=== PATIENT | male | born 2000 | race Asian ===

== ENCOUNTER 2024-06-27 23:55 | Inpatient (IN) ==
[2024-06-28 00:48] LABS: Basophils # (auto) 0.04 K/uL (0.00-0.20); Basophils % (auto) 0.3 %; Eosinophils # (auto) 0.03 K/uL (0.00-0.50); Eosinophils % (auto) 0.2 %; Hematocrit (blood only) 48.1 % (42.0-52.0); Hemoglobin 16.1 g/dl (14.0-18.0); Immature Granulocytes # (auto) 0.05 K/uL (0.01-0.20); Immature Granulocytes % (auto) 0.3 %; Lymphocytes # (auto) 2.17 K/uL (1.20-3.40); Lymphocytes % (auto) 14.9 %; Mean Corpuscular Hgb Conc 33.5 g/dL (32.0-36.0); Mean Corpuscular Volume 89.6 fL (80.0-100.0); Mean Platelet Volume 10.5 fL (9.4-12.4); Monocytes # (auto) 0.82 K/uL (0.11-0.59); Monocytes % (auto) 5.6 %; Neutrophils # (auto) 11.44 K/uL (1.40-6.50); Neutrophils % (auto) 78.7 %; Platelet Count 320 K/uL (130-400); RDW Coefficient of Variation 13.1 % (11.5-14.5); RDW Standard Deviation 42.4 fL (36.4-46.3); Red Blood Count 5.37 M/uL (4.70-6.10); White Blood Count 14.55 K/ul (4.8-10.8)
[2024-06-28 00:54] LABS: Alanine Aminotransferase 126 U/L (7-52); Albumin Globulin Ratio 1.9 (0.9-2); Albumin Level 5.3 gm/dl (3.4-5.0); Alkaline Phosphatase 64 U/L (34-104); Anion Gap 13 (3-11); Aspartate Aminotransferase 38 U/L (13-39); BUN Creatinine Ratio 8.2 (10-20); Bilirubin,Total 1.1 mg/dl (0.2-1.0); Blood Urea Nitrogen 8 mg/dl (6-23); Calcium 9.6 mg/dl (8.6-10.3); Carbon Dioxide 23 mmol/L (21-32); Chloride 100 mmol/L (98-107); Globulin 2.8 gm/dl (2.5-4.0); Glucose 165 mg/dl (70-99(Fasting)); Potassium 3.4 mmol/L (3.5-5.1); Sodium 136 mmol/L (136-145); Total Protein 8.1 gm/dl (6.0-8.3)
[2024-06-28 00:56] LABS: Appearance Urine Clear (Clear); Bacteria Urine Automated None Seen (None Seen); Bilirubin Urine 1+ (Negative); Blood Urine Negative (Negative); Calcium Oxalate Crystals Urine Present (None Prsent); Cast Urine Automated 0-2 /lpf (0-2); Color Urine Dark Yellow; Epithelial Cell Urine Auto 0-2 /hpf (0-2); Glucose Urine UA Negative (Negative); Ketones Urine 1+ (Negative); Leukocyte Esterase Urine Trace (Negative); Nitrite Urine Negative (Negative); Protein Urine 1+ (Negative); Specific Gravity Urine 1.033 (1.000-1.030); Urobilinogen Urine Negative (Negative); WBC Urine Automated 0-5 /hpf (0-5); pH Urine 6.5 (4.5-7.5)
--- NOTE | 2024-06-28 01:00 | Emergency Department Note ---
Impression & Plan Recurrent thoughts of , Acute paranoia ED Provider Note CHIEF COMPLAINT: Mental health evaluation HISTORY OF PRESENT ILLNESS: This 24-year-old male patient with no significant past medical history presents to the emergency department with complaints of a "strong sensation of ." the patient stated to nursing staff that he felt as though somebody was going to shoot him with a gun. He also believes that if he does not , the situation will become a mass shooting. The patient is adamant that he has no thoughts of self-harm or harming anyone else. He states this began on June 13 with a group chat. One of the participants who lives in [place], has made the patient feel very uncomfortable however did not threaten him specifically. The patient called the police himself this evening however he would not open the door. They were able to communicate through the door however and the police left. Short while later a family member contacted the police for a welfare check. Crisis spoke with the patient for approximately 2 hours this evening. He is in the emergency department on a voluntary basis. He denies drugs and alcohol this evening. REVIEW OF SYSTEMS: 10 systems were reviewed and otherwise negative unless mentioned above. PMH: see below SOCIAL HISTORY: see below DDx: Psychosis, substance abuse, metabolic derangement, paranoia, situational stressors among others. PHYSICAL EXAM: Vital signs reviewed. General: Well-appearing 24-year-old male, in no significant distress. HEENT: No scleral icterus, PERRLA, neck supple. Atraumatic. Cardiovascular: Regular rate and rhythm, no extra sounds. Pulmonary: Clear to auscultation bilaterally, normal work of breathing. Abdomen: Soft, nontender, nondistended, positive bowel sounds. Musculoskeletal: Atraumatic, no peripheral edema. Psychiatric: Negative suicidal, negative homicidal ideation. Positive paranoia Neurologic: Patient awake alert and oriented x 3, speech is clear Skin: Warm, dry, no rash EMERGENCY DEPARTMENT COURSE/MDM: This patient was evaluated and appeared to be in no significant distress. Patient was medically cleared after physical examination, blood and urine testing. Patient is voluntary for admission after some discussion with case management and nursing staff. He was willing to take oral Ativan for some agitation and need for sleep. 3 S. has agreed to evaluate the patient and will be down after the change of shift this morning. The case has been signed out to Dr. Sánchez pending final disposition. DISPOSITION: Pending Past Med/Surg History Problem List (Updated 06/28/24 @ 02:01 by Sherron Piña MD) Acute paranoia (Acute) Recurrent thoughts of (Acute) Medical History Anxiety Surgical History No pertinent past surgical history Social History Smoking Status: Never smoker Hx Alcohol Use: No Hx Substance Use: No Preferred Language: [place] Communication Ability: Effective Yarn Hauler Required: No Beliefs That Will Affect Care: Orthodoxy Orthodoxy Beliefs: Methodist current occupational status: student current occupation: [employer] student Feels Safe at Home: Yes Gender Identity: Male Assistive Devices: None Allergies Allergies Allergy/AdvReac Type Severity Reaction Status Date / Time No Known Allergies Allergy Unverified 06/28/24 17:49 Home Meds Home Medications Medication Instructions Recorded Confirmed No Known Home Medications 06/28/24 06/28/24 Results & Data (ED) Vital Signs Vital Signs - 24 hr 06/28/24 07:51 06/28/24 11:28 Temperature 37.4 C Temperature Source Oral Pulse Rate [Finger] 100 H 102 H Pulse Rhythm [Finger] Regular Regular Pulse Strength [Finger] Normal Normal Respiratory Rate 20 18 Respiratory Effort / Characteristics Non-Labored Spontaneous Non-Labored Spontaneous Respiratory Depth Normal Normal Respiratory Pattern Regular Regular Blood Pressure [Right Arm] 143/92 H 147/91 H Blood Pressure Mean [Right Arm] 109 109 Blood Pressure Position [Right Arm] Sitting Sitting Pulse Oximetry 99 97 Oxygen Delivery Method Room Air Room Air Home Medications Current Medication List: was personally reviewed by me Laboratory Data Attestation: I reviewed the patient's lab results. 06/28/24 00:19 06/28/24 00:19 Lab Results 06/28/24 06/28/24 Range/Units 00:17 00:19 WBC 14.55 H (4.8-10.8) K/ul RBC 5.37 (4.70-6.10) M/uL Hgb 16.1 (14.0-18.0) g/dl Hct 48.1 (42.0-52.0) % MCV 89.6 (80.0-100.0) fL MCH 30.0 (25.0-34.0) pg MCHC 33.5 (32.0-36.0) g/dL RDW Std Deviation 42.4 (36.4-46.3) fL RDW Coeff of Bridget 13.1 (11.5-14.5) % Plt Count 320 (130-400) K/uL MPV 10.5 (9.4-12.4) fL Immature Gran % (Auto) 0.3 % Neut % (Auto) 78.7 % Lymph % (Auto) 14.9 % [place] % (Auto) 5.6 % Eos % (Auto) 0.2 % Baso % (Auto) 0.3 % Neut # (Auto) 11.44 H (1.40-6.50) K/uL Lymph # (Auto) 2.17 (1.20-3.40) K/uL [place]cher # (Auto) 0.82 H (0.11-0.59) K/uL Eos # (Auto) 0.03 (0.00-0.50) K/uL Baso # (Auto) 0.04 (0.00-0.20) K/uL Immature Gran # (Auto) 0.05 (0.01-0.20) K/uL Sodium 136 (136-145) mmol/L Potassium 3.4 L (3.5-5.1) mmol/L Chloride 100 (98-107) mmol/L Carbon Dioxide 23 (21-32) mmol/L Anion Gap 13 H (3-11) BUN 8 (6-23) mg/dl Creatinine 0.98 (0.6-1.4) mg/dl Est Cr Clr Drug Dosing Not Reportable eGFR 111.12 BUN/Creatinine Ratio 8.2 L (10-20) Glucose 165 H (70-99(Fasting)) mg/dl Calcium 9.6 (8.6-10.3) mg/dl Total Bilirubin 1.1 H (0.2-1.0) mg/dl AST 38 (13-39) U/L ALT 126 H (7-52) U/L Alkaline Phosphatase 64 (34-104) U/L Total Protein 8.1 (6.0-8.3) gm/dl Albumin 5.3 H (3.4-5.0) gm/dl Globulin 2.8 (2.5-4.0) gm/dl Albumin/Globulin Ratio 1.9 (0.9-2) TSH 0.727 (0.300-4.500) uIu/ml Urine Color Dark Yellow Urine Appearance Clear (Clear) Urine pH 6.5 (4.5-7.5) Ur Specific [place] 1.033 H (1.000-1.030) Urine Protein 1+ H (Negative) Urine Glucose (UA) Negative (Negative) Urine Ketones 1+ H (Negative) Urine Blood Negative (Negative) Urine Nitrite Negative (Negative) Urine Bilirubin 1+ H (Negative) Urine Urobilinogen Negative (Negative) Ur Leukocyte Esterase Trace H (Negative) Urine WBC (Auto) 0-5 (0-5) /hpf Urine RBC (Auto) 3-5 H (0-2) /hpf U Hyaline Cast (Auto) 0-2 (0-2) /lpf U Epithel Cells (Auto) 0-2 (0-2) /hpf Urine Bacteria (Auto) None Seen (None Seen) Calcium Oxalate Crystal Present A (None Prsent) Salicylates < 3.0 L (3.0-30) mg/dl Urine Opiates Screen Neg (Neg) Ur Methadone, Qual Neg (Neg) Urine Fentanyl Screen Neg (Neg) Acetaminophen < 3 L (10-30) ug/ml Urine Barbiturates Neg (Neg) Ur Phencyclidine (PCP) Neg (Neg) U Amphetamin/Meth Scrn Neg (Neg) MDMA (Ecstasy) Screen Neg (Neg) U Benzodiazepines Scrn Neg (Neg) Ur Cocaine Metabolite Neg (Neg) U Marijuana (THC) Screen Neg (Neg) Ethyl Alcohol mg/dL < 10.0 (<10.0) mg/dl SARS-CoV-2, RNA, NAAT NEGATIVE (NEGATIVE) Administered Medications Lorazepam (Lorazepam 1 Mg Tab) 1 mg PO HS MARIANA Stop: 07/28/24 21:59 Last Admin: 06/28/24 21:11 Dose: 1 mg Documented By: RB Risperidone (Risperidone 1 Mg Tablet) 1 mg PO BID MARIANA Stop: 07/28/24 20:59 Last Admin: 06/28/24 21:11 Dose: 1 mg Documented By: RB Discontinued Medications Lorazepam (Lorazepam 1 Mg Tab) 1 mg SL NOW STA Stop: 12/23/24 02:19 Last Admin: 06/28/24 02:26 Dose: 1 mg Documented By: YAJAIRA Lorazepam (Lorazepam 1 Mg Tab) 1 mg SL NOW STA Stop: 06/28/24 09:16 Last Admin: 06/28/24 10:33 Dose: 1 mg Documented By: DELONTE Lorazepam (Lorazepam 2 Mg/1 Ml Vial) 2 mg IM NOW STA Stop: 06/28/24 10:06 Last Admin: 06/28/24 14:14 Dose: Not Given Documented By: MILADY Miscellaneous Information (Patient's Allergy Info Needs Entered) 1 each N/A NOW STA Stop: 06/28/24 14:17 Last Admin: 06/28/24 18:18 Dose: 1 each Documented By: LINDA Risperidone (Risperidone 1 Mg Tablet) 1 mg PO NOW STA Stop: 06/28/24 11:13 Last Admin: 06/28/24 11:23 Dose: 1 mg Documented By: [facility] Discharge Plan Visit Data Chief Complaint: Mental Health Evaluation ED Provider: Hussain Sánchez Discharge Problem: Recurrent thoughts of , Acute paranoia Patient Disposition: Admitted As Inpatient Condition: Good Discharge Instructions Interventions: ED Discharge Assessment Last Done: 06/28/24 13:09
[2024-06-28 01:06] LABS: Amphetamines+Metham, Urine Neg (Neg); Barbiturates, Urine Neg (Neg); Benzodiazepine, Urine Neg (Neg); Cocaine, Urine Neg (Neg); Fentanyl, Urine Neg (Neg); MDMA (Ecstacy), Urine Neg (Neg); Marijuana, Urine Neg (Neg); Methadone, Urine Neg (Neg); Opiate, Urine Neg (Neg); Phencyclidine, Urine Neg (Neg)
[2024-06-28 01:09] LABS: Acetaminophen < 3 ug/ml (10-30); Salicylate < 3.0 mg/dl (3.0-30); Thyroid Stimulating Hormone 0.727 uIu/ml (0.300-4.500)
[2024-06-28] MEDS: LORazepam 1 MG TAB SL STA ×2 (02:26→10:33)
--- NOTE | 2024-06-28 06:53 | Emergency Department Note ---
ED Visit Note I received signout from Dr. Piña patient has had associated visual hallucinations or visions of him dying. Patient states that he was also inv olved in a group chat where he felt threatened. Patient reports that somebody in this group chat who apparently is located in [place] may be threatening to harm people patient currently is a voluntary 201. Patient is an international student. No prior history of mental wellness issues. Patient did receive some Ativan. Upon my assessment the patient was having delusional thinking paranoia and acute psychosis. Patient was offered Ativan which she was willing to take. Patient was evaluated by [address] Rizwan Hayden morning sure that he would be compliant and willing to try medications. The patient was ordered 1 mg of p.o. Risperdal. The patient took this. The patient was deemed suitable for inpatient treatment 3 S. Patient was accepted for inpatient treatment. .
[2024-06-28] MEDS: risperiDONE 1 MG TABLET PO STA (11:23)
[2024-06-28] MEDS ORDERED: hydrOXYzine HCl 25 MG TAB PO PRN (12:05)
[2024-06-28] MEDS ORDERED: ACETAMINOPHEN 325 MG TAB PO PRN (12:05)
[2024-06-28] MEDS ORDERED: BISMUTH SUBSALICYLATE 262 MG CHEW PO PRN (12:05)
[2024-06-28] MEDS ORDERED: MAGNESIUM HYDROXIDE SUSP 30 ML UDC PO PRN (12:05)
[2024-06-28] MEDS ORDERED: ALUMINUM/MAGNESIUM SUSP 30 ML UDC PO PRN (12:05)
[2024-06-28] MEDS ORDERED: LORazepam 2 MG/1 ML VIAL IM PRN (13:55)
[2024-06-28] MEDS ORDERED: HALOPERIDOL LACTATE 5 MG/ML 1 ML VIAL IM PRN (14:06)
[2024-06-28] MEDS: LORazepam 2 MG/1 ML VIAL IM STA (14:14)
[2024-06-28] MEDS: Patient's ALLERGY Info needs ENTERED STA (18:18)
[2024-06-28] MEDS: LORazepam 1 MG TAB PO SCH (21:11)
[2024-06-28] MEDS: risperiDONE 1 MG TABLET PO SCH (21:11)
[2024-06-29] MEDS: LORazepam 1 MG TAB PO PRN (08:21)
[2024-06-29] MEDS: haloperidoL 5 MG TAB PO PRN (08:21)
[2024-06-29 10:50] LABS: Estimated Average Glucose 105 mg/dl; Hemoglobin A1C 5.3 % (4.5-5.6)
--- NOTE | 2024-06-29 15:01 | History & Physical ---
Date of Service June 29, 2024 Impression / Recommendations Impression LIBBY GAN is a 24-year-old Latvian Male, [employer] who currently lives alone, has a history of depression, and was admitted on 06/28/24 12:05 on a 302 involuntary commitment for psychosis. Patient presenting paranoia and persecutory delusions regarding fear of of himself and family after being triggered on [employer] online chat June 13. He presents a disorganized thought process, extreme anxiety, insomnia. Poor reality testing. Recently called police for assistance and did not let them inside his apartment due to excess fears. Presented to the hospital and then attempted to elope. Has required agitation and anxiety PRNs for behaviors. Concern for prodromal cognitive difficulties, perceptual changes, decline in academic performance, and social withdrawal seen in Schizophrenia. Possible past hypomanic/marky episodes however unclear. Does not appear to be substance induced. 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 Labs reviewed: WBC 14.55, neutrophils 11.44, AST 126 with normal ALT, UA positive for RBCs and dark color/calcium oxalate crystals, UDS negative, blood alcohol of 0. Patient has been dehydrated and concern for excess motor activity. Plan to initiate antipsychotic medication and sleep aid; medication s/e, adverse effects discussed with patient and agreeable. Overall, I spent a total of 80 minutes with this case including review of chart records, nursing report, review of lab work, direct evaluation of the patient at bedside, counseling the patient, multidisciplinary team meeting, orders, and documentation in the electronic health record. (1) Unspecified psychosis not due to a substance or known physiological condition: (2) Insomnia: (3) Persecutory delusion: (4) Recurrent thoughts of : (5) Acute paranoia: (6) Anxiety: Plan 06/29/24:The patient was admitted to the [facility] ([facility] inpatient mental health unit) on q15 min checks (behavioral with suicide precautions) for safety. The patient will participate in group, recreational, and milieu therapies and will be offered additional individual and family sessions as clinically appropriate. -Risperidone 1mg QAM, 2mg HS -Lorazepam 2mg HS -CK, fasting lipid panel, HbA1c, Vitamin D, Vitamin B12 labs Inventory Assets Strengths: independent, family support Needs: improved insight, improved reality testing Suicide Risk Level Suicide Risk Level: High-Moderate (q15 min suicide checks) Risk Factors Assessment Male: Yes : No Do You Have Access To A Gun?: No Health Problems: No Mental Health Diagnoses: Yes Substance Use Disorders: No Previous Attempt: No Family History of Suicide: No Previous Psychiatric Hospitalization: No Hopelessness: Yes Protective Factors Assessment Mandaeism Beliefs: Yes : No Responsible for Young Children: No Employed: No Stable Relationships: Yes Supportive Family: Yes Good Rapport with Provider: Yes Absence of Any Risk Factors Above: No Psychiatric History Identifying Data LIBBY GAN is 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 Chief Complaint "Mind is not clear" History of Present Illness overnight patient presents thought disorganization and thought blocking. This a.m. complained of fear of being killed and requested PRNs. Haldol Ativan given. On interview the patient appeared confused and where to sit in the room. Reports that his "mind is not clear" and then says it is clear. he appears paranoid and reports he is afraid to tell me what brought him to the hospital. "Uncontrolled fears, strong heartbeat, scared, afraid someone is going to kill him". He is worried that if he tells me there is increased fear of danger. Reports not drinking as much water as he usually does. Said that he slept well yesterday but then woke up scared. Reports being on a group chat on [employer] on June 13. Repeatedly asked for a calendar to better explain the timeline. Says that if he reveals too much then they will harm his family. 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 Has recently been procrastinating and has had poor sleep. Cannot focus on classes and has been feeling nervous. Grades have been poor and he did not complete a final assignment for her class. Reports normally his grades are good. Says he is unsure of family psychiatric history. Reports past depression on Lexapro from April 2019-2023. He stopped it because he felt it was no longer helpful. At this point his thoughts are more disorganized and it is unclear what he is saying. He reports past episode where he was taking condensed coffee and then he was having more extreme mood swings and he was not sleeping for 4 to 5 days and became psychotic. Unable to clarify. Reports in the past has been claustrophobic. 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 Past Psychiatric History Current Psychiatric Diagnosis: None Do You Have Access To A Gun?: No History of Previous Suicide Attempt: No Allergies Allergy/AdvReac Type Severity Reaction Status Date / Time No Known Allergies Allergy Unverified 06/28/24 17:49 Home Medications Medication Instructions Recorded Confirmed Type No Known Home Medications 06/28/24 06/28/24 History Family History Family History of: Doesn't Know Alcohol History Hx of Alcohol Use Over the Past 12 Months: No Smoking Use Have You Smoked or Used Tobacco Products in the Last 30 Days: No Smoking Status: Never smoker Substance History Hx of Prescription Med Misuse Over the Past 12 Months: No Hx of Over the Counter Med Misuse Over the Past 12 Months: No Hx of Inhalent Misuse Over the Past 12 Months: No Hx of Organic Substance Use Over the Past 12 Months: No Hx of Illegal Substances/Street Drug Use Over Past 12 Months: No Problems as a Result of Past Substance Use: None Identified Personal History Beliefs That Will Affect Care: Mandaeism Patient History Medical History Anxiety Surgical History No pertinent past surgical history Social History Smoking Status: Never smoker Hx Alcohol Use: No Hx Substance Use: No Preferred Language: Amharic Communication Ability: Effective Stereoptician Required: No Beliefs That Will Affect Care: Mandaeism Mandaeism Beliefs: Mormon current occupational status: student current occupation: [employer] student Feels Safe at Home: Yes Gender Identity: Male Assistive Devices: None Physical Exam Vital Signs (Past 24 Hours): Last Vital Signs Temp 36.2 C L 06/29/24 06:37 Pulse 115 H 06/29/24 06:39 Resp 16 06/29/24 06:37 BP 117/80 06/29/24 06:39 Pulse Ox 98 06/29/24 06:37 O2 Del Method Room Air 06/29/24 06:37 Exam Statement: A physical exam was performed in the ED for the purposes of medical clearance. I accept that physical as correct and adequate for the purposes of the inpatient physical exam. Results & Data ([facility]) Laboratory Results Laboratory Results - last 24 hr 06/28/24 06/28/24 00:17 00:19 Estimat Average Glucose 105 Hemoglobin A1c 5.3 Total Creatine Kinase 123 Vitamin B12 541 25-OH Vitamin D Total 22.8 L Current Inpatient Medications Current Inpatient Medications: Current Inpatient Medications Acetaminophen (Acetaminophen 325 Mg Tab) 650 mg PO Q4H PRN PRN Reason: Headache or Minor Fever Stop: 07/28/24 12:04 Al Hydrox/Mg Hydrox/Simethicone (Aluminum/Magnesium Susp 30 Ml Udc) 30 ml PO Q4H PRN PRN Reason: GI Upset Stop: 07/28/24 12:04 Bismuth Subsalicylate (Bismuth Subsalicylate 262 Mg Chew) 2 tab PO Q30M PRN PRN Reason: Loose Stool/Diarrhea Stop: 07/28/24 12:04 Haloperidol (Haloperidol 5 Mg Tab) 5 mg PO Q8H PRN PRN Reason: Agitation Stop: 07/28/24 14:05 Last Admin: 06/29/24 08:21 Dose: 5 mg Haloperidol Lactate (Haloperidol Lactate 5 Mg/Ml 1 Ml Vial) 5 mg IM Q8H PRN PRN Reason: Agitation Stop: 07/28/24 14:14 Hydroxyzine HCl (Hydroxyzine Hcl 25 Mg Tab) 50 mg PO HSZ PRN PRN Reason: Insomnia Stop: 07/28/24 12:04 Hydroxyzine HCl (Hydroxyzine Hcl 25 Mg Tab) 25 mg PO Q4H PRN PRN Reason: Anxiety Stop: 07/28/24 12:04 Lorazepam (Lorazepam 2 Mg/1 Ml Vial) 1 mg IM Q6H PRN PRN Reason: Anxiety Stop: 07/28/24 13:54 Lorazepam (Lorazepam 1 Mg Tab) 1 mg PO Q6H PRN PRN Reason: Anxiety Stop: 07/28/24 14:03 Last Admin: 06/29/24 08:21 Dose: 1 mg Lorazepam (Lorazepam 1 Mg Tab) 2 mg PO HS MARIANA Stop: 07/29/24 21:59 Magnesium Hydroxide (Magnesium Hydroxide Susp 30 Ml Udc) 30 ml PO DAILY PRN PRN Reason: Constipation Stop: 07/28/24 12:04 Risperidone (Risperidone 1 Mg Tablet) 1 mg PO DAILY MARIANA Stop: 07/30/24 08:59 Risperidone (Risperidone 2 Mg Tablet) 2 mg PO HS MARIANA Stop: 07/29/24 21:59 Sodium Chloride (Sodium Chloride 0.65% Na Soln 45 Ml ([place])) 1 - 2 sprays NA PRN PRN PRN Reason: Nasal Dryness/Congestion Stop: 07/28/24 12:04
[2024-06-29] MEDS: risperiDONE 2 MG TABLET PO SCH (21:19)
[2024-06-29] MEDS: LORazepam 1 MG TAB PO SCH (21:19)
[2024-06-30 07:45] LABS: Chol HDL Ratio 3.8 (0-5)
[2024-06-30] MEDS: risperiDONE 1 MG TABLET PO SCH (09:17)
[2024-06-30] MEDS: PROPRANOLOL HCL 10 MG TAB PO SCH (10:55)
[2024-06-30] MEDS ORDERED: BENZTROPINE MESYLATE 1 MG/ML 2 ML AMP IM PRN (11:40)
[2024-06-30] MEDS: BENZTROPINE MESYLATE 1 MG TAB PO PRN (12:43)
--- NOTE | 2024-06-30 13:58 | Psychiatric Progress Note ---
Date of Service June 30, 2024 Impression / Recommendations Impression LIBBY GAN is a 24-year-old [place] Male, [place] [employer] who currently lives alone, has a history of depression, and was admitted on 06/28/24 12:05 on a 302 involuntary commitment for psychosis. Patient presenting paranoia and persecutory delusions regarding fear of of himself and family after being triggered on discord online chat June 13. He presents a disorganized thought process, extreme anxiety, insomnia. Poor reality testing. Recently called police for assistance and did not let them inside his apartment due to excess fears. Presented to the hospital and then attempted to elope. Has required agitation and anxiety PRNs for behaviors. Concern for prodromal cognitive difficulties, perceptual changes, decline in academic performance, and social withdrawal seen in Schizophrenia. Possible past hypomanic/marky episodes however unclear. Does not appear to be substance induced. A:Patient acutely psychotic. Presents persecutory delusions of being targeted and that him and his families life is in danger. Appears to be in response to a recent online chat. Concern for dystonia and slurred speech d/t excess D2 blockade. Elevated heart rate. Limited sleep overnight. Plan to switch ant ipsychotics to limit EPS and improve sleep. Scheduled benztropine for EPS. Propranolol started for inc HR 2/2 anxiety, antipsychotic meds. Labs reviewed and Vitamin D insufficience, B12 unremarkable, lipid panel and hgba1c unremarkable; CK 123. Overall, I spent a total of 40 minutes with this case including review of chart records, nursing report, review of lab work, direct evaluation of the patient at bedside, counseling the patient, multidisciplinary team meeting, orders, and documentation in the electronic health record. (1) Unspecified psychosis not due to a substance or known physiological condition: (2) Insomnia: (3) Persecutory delusion: (4) Recurrent thoughts of : (5) Acute paranoia: (6) Anxiety: (7) Dystonia: (8) Antipsychotic-induced neurological movement disorder: Plan 06/30/24: D/C Risperidone. Start Olanzapine 5mg QAM, 15mg HS. Benztropine 0.5mg HS and PRN started. Start Propranolol 10mg TID. Vitals TID. 06/29/24:The patient was admitted to the [facility] ([facility] mental [facility] unit) on q15 min checks (behavioral with suicide precautions) for safety. The patient will participate in group, recreational, and milieu therapies and will be offered additional individual and family sessions as clinically appropriate. -Risperidone 1mg QAM, 2mg HS -Lorazepam 2mg HS -CK, fasting lipid panel, HbA1c, Vitamin D, Vitamin B12 labs Inventory Assets Strengths: independent, family support Needs: improved insight, improved reality testing Suicide Risk Level Suicide Risk Level: High-Moderate (q15 min suicide checks) Risk Factors Assessment Male: Yes : No Do You Have Access To A Gun?: No Health Problems: No Mental Health Diagnoses: Yes Substance Use Disorders: No Previous Attempt: No Family History of Suicide: No Previous Psychiatric Hospitalization: No Hopelessness: Yes Protective Factors Assessment Christianity Beliefs: Yes : No Responsible for Young Children: No Employed: No Stable Relationships: Yes Supportive Family: Yes Good Rapport with Provider: Yes Absence of Any Risk Factors Above: No Interval History Identifying Information LIBBY GAN is a 24-year-old [place] Male, [employer] senior who currently lives alone, has a history of depression, and was admitted on 06/28/24 12:05 on a 302 involuntary commitment for psychosis. Chief Complaint "Still worried" Review of Systems Sleep Information Total Hours of Sleep: 5.5 Meal Information Percent Meal Consumed - Breakfast: 100 Percent Meal Consumed - Lunch: 75 Percent Meal Consumed - Dinner: 75 Subjective Subjective Patient was seen & assessed and interval progress reviewed with treatment team nursing and social work Overnight patient presents disorganized thought process and appears paranoid. on interview he appears paranoid. He talks to me with his eyes closed. The slurred speech. Reports that his heart is beating fast. Has difficulty expressing clear sentences. Reports he still feels he is being monitored on "we chat, Instagram, phone messages, calls" and that they know his location. Says there is a new patient on the floor and he is worried about them. He lives soft bunch of numbers which could could possibly be a phone number but is not clear. He asks us to read a note that he wrote. After receiving Haldol and Ativan as needed in the morning he is seen to have a locked body position of his arms and hip. Reviewed the note he wrote: reports that he is from [facility]. discusses how he was sent messages by someone who did not know his number. How unknown people could know each other. He sent a screen shot of his chat history to his parents and they did not understand the connection. Feels both of his phones are monitored and that people are listening through the microphones. Says that his Wi-Fi at his apartment was being monitored and controlled. That is we chat account was hacked and that "Cristino Parekh" is threatening the life of his family members in exchange for his life. unsure of why this individual hates him so much and wants him or his family . Says that he never hated this person. Says that this individual and another individual "A Maxi" cooperated to control his [employer] and [employer] account. Says he was mocked for his birthday being [birth year]. Reports judgments of being a "terrible person with a bad temper with yells and shouts many words". Says he does not know why he is being monitored too much and that he is just a foreign college student who happens to be interested in offensive names and conspiracy theories. Pleading that he can have a normal life. Physical Exam Mental Examination Appearance: Disheveled Eye Contact: Sporadic Contact Motor Behavior: Slowed (dystonia of neck, hips) Speech: Slurred Mood: Anxious Affect: Fearful and Nervous Thought Process: Disorganized and Evasive Hallucinations: None Insight: Poor (persecutory delusions) Judgement: Poor Vital Signs (Past 24 Hours) Last Vital Signs Temp 36.3 C L 06/30/24 11:37 Pulse 136 H 06/30/24 11:37 Resp 20 06/30/24 06:00 BP 131/93 06/30/24 11:37 Pulse Ox 98 06/30/24 11:37 O2 Del Method Room Air 06/30/24 11:37 Results & Data ([facility]) Laboratory Results Laboratory Results - last 24 hr 06/30/24 07:05 Triglycerides 94 Cholesterol 159 LDL Cholesterol, Calc 98 VLDL Cholesterol, Calc 19 HDL Cholesterol 42 Cholesterol/HDL Ratio 3.8 Current Inpatient Medications Current Inpatient Medications: Current Inpatient Medications Acetaminophen (Acetaminophen 325 Mg Tab) 650 mg PO Q4H PRN PRN Reason: Headache or Minor Fever Stop: 07/28/24 12:04 Al Hydrox/Mg Hydrox/Simethicone (Aluminum/Magnesium Susp 30 Ml Udc) 30 ml PO Q4H PRN PRN Reason: GI Upset Stop: 07/28/24 12:04 Benztropine Mesylate (Benztropine Mesylate 1 Mg Tab) 1 mg PO Q8H PRN PRN Reason: EPS Stop: 07/30/24 11:39 Last Admin: 06/30/24 12:43 Dose: 1 mg Benztropine Mesylate (Benztropine Mesylate 1 Mg/Ml 2 Ml Amp) 1 mg IM Q8H PRN PRN Reason: EPS Stop: 07/30/24 11:39 Benztropine Mesylate (Benztropine Mesylate 0.5 Mg Tab) 0.5 mg PO HS MARIANA Stop: 07/30/24 21:59 Bismuth Subsalicylate (Bismuth Subsalicylate 262 Mg Chew) 2 tab PO Q30M PRN PRN Reason: Loose Stool/Diarrhea Stop: 07/28/24 12:04 Haloperidol (Haloperidol 5 Mg Tab) 5 mg PO Q8H PRN PRN Reason: Agitation Stop: 07/28/24 14:05 Last Admin: 06/30/24 07:33 Dose: 5 mg Haloperidol Lactate (Haloperidol Lactate 5 Mg/Ml 1 Ml Vial) 5 mg IM Q8H PRN PRN Reason: Agitation Stop: 07/28/24 14:14 Hydroxyzine HCl (Hydroxyzine Hcl 25 Mg Tab) 50 mg PO HSZ PRN PRN Reason: Insomnia Stop: 07/28/24 12:04 Hydroxyzine HCl (Hydroxyzine Hcl 25 Mg Tab) 25 mg PO Q4H PRN PRN Reason: Anxiety Stop: 07/28/24 12:04 Lorazepam (Lorazepam 2 Mg/1 Ml Vial) 1 mg IM Q6H PRN PRN Reason: Anxiety Stop: 07/28/24 13:54 Lorazepam (Lorazepam 1 Mg Tab) 1 mg PO Q6H PRN PRN Reason: Anxiety Stop: 07/28/24 14:03 Last Admin: 06/30/24 07:33 Dose: 1 mg Lorazepam (Lorazepam 1 Mg Tab) 2 mg PO HS MARIANA Stop: 07/29/24 21:59 Last Admin: 06/29/24 21:19 Dose: 2 mg Magnesium Hydroxide (Magnesium Hydroxide Susp 30 Ml Udc) 30 ml PO DAILY PRN PRN Reason: Constipation Stop: 07/28/24 12:04 Olanzapine (Olanzapine 5 Mg Tablet) 15 mg PO HS MARIANA Stop: 07/30/24 21:59 Olanzapine (Olanzapine 5 Mg Tablet) 5 mg PO QAM MARIANA Stop: 07/31/24 08:59 Propranolol HCl (Propranolol Hcl 10 Mg Tab) 10 mg PO TID MARIANA Stop: 07/30/24 09:49 Last Admin: 06/30/24 11:40 Dose: 10 mg Sodium Chloride (Sodium Chloride 0.65% Na Soln 45 Ml ([place])) 1 - 2 sprays NA PRN PRN PRN Reason: Nasal Dryness/Congestion Stop: 07/28/24 12:04 Mental Health & Subst Abuse Tx Therapist Name of Therapist: None Implementation Manager Name of Implementation Manager: None Post Discharge Appointments Primary Care Physician Name Of Family Doctor/PCP: FEROZ
[2024-06-30] MEDS ORDERED: OLANZapine ZYDIS 5 MG ORALLY DIS. TAB PO PRN (14:19)
[2024-06-30] MEDS: BENZTROPINE MESYLATE 1 MG/ML 2 ML AMP IM STA (14:22)
[2024-06-30] MEDS: hydrOXYzine HCl 25 MG TAB PO PRN (15:20)
[2024-06-30] MEDS: BENZTROPINE MESYLATE 1 MG TAB PO SCH (21:08)
[2024-06-30] MEDS: OLANZapine 5 MG TABLET PO SCH (21:09)
[2024-06-30] MEDS ORDERED: BENZTROPINE MESYLATE 0.5 MG TAB PO SCH (22:00)
[2024-07-01] MEDS: OLANZapine 5 MG TABLET PO SCH (08:38)
--- NOTE | 2024-07-01 14:56 | Psychiatric Progress Note ---
Date of Service July 01, 2024 Impression / Recommendations Impression LIBBY GAN is a 24-year-old [place] Male, [employer] senior who currently lives alone, has a history of depression, and was admitted on 06/28/24 12:05 on a 302 involuntary commitment for psychosis. Patient presenting paranoia and persecutory delusions regarding fear of of himself and family after being triggered on [employer] online chat June 13. He presents a disorganized thought process, extreme anxiety, insomnia. Poor reality testing. Recently called police for assistance and did not let them inside his apartment due to excess fears. Presented to the hospital and then attempted to elope. Has required agitation and anxiety PRNs for behaviors. Concern for prodromal cognitive difficulties, perceptual changes, decline in academic performance, and social withdrawal seen in Schizophrenia. Possible past hypomanic/marky episodes however unclear. Does not appear to be substance induced. A:Patient acutely psychotic. Presents persecutory delusions of being targeted and that him and his family's life is in danger. Unable to explore past history of mental health complaints due to paranoia and fear that it will result in of mother. Patient presenting paranoia about new patient on the unit. Presents in a highly anxious state and impacting sleep and daily function. Dystonia resolved. Elevated heart rate stabilized. Appears less physically anxious today with propranolol. Collateral gathered from mother and updated on care plan. Patient continues to present poor reality testing and there is concern for potential self-harm or harm against others if discharged in his current state. In addition he presented in a severely dehydrated state with poor self-care and there is concern that this behavior will repeat without psychiatric stabilization. Pursuing 303 involuntary commitment with hearing scheduled for tomorrow. Overall, I spent a total of 80 minutes with this case including review of chart records, nursing report, review of lab work, direct evaluation of the patient at bedside, counseling the patient, multidisciplinary team meeting, gathering collateral from mother, orders, and documentation in the electronic health record. (1) Unspecified psychosis not due to a substance or known physiological condition: (2) Insomnia: (3) Persecutory delusion: (4) Recurrent thoughts of : (5) Acute paranoia: (6) Anxiety: Plan 07/01/24: Continue medications and treatment plan. 06/30/24: D/C Risperidone. Start Olanzapine 5mg QAM, 15mg HS. Benztropine 1mg HS and PRN started. Start Propranolol 10mg TID. Vitals TID. 06/29/24:The patient was admitted to the [facility] ([facility] mental health unit) on q15 min checks (behavioral with suicide precautions) for safety. The patient will participate in group, recreational, and milieu therapies and will be offered additional individual and family sessions as clinically appropriate. -Risperidone 1mg QAM, 2mg HS -Lorazepam 2mg HS -CK, fasting lipid panel, HbA1c, Vitamin D, Vitamin B12 labs Inventory Assets Strengths: independent, family support Needs: improved insight, improved reality testing Suicide Risk Level Suicide Risk Level: High-Moderate (q15 min suicide checks) Risk Factors Assessment Male: Yes : No Do You Have Access To A Gun?: No Health Problems: No Mental Health Diagnoses: Yes Substance Use Disorders: No Previous Attempt: No Family History of Suicide: No Previous Psychiatric Hospitalization: No Hopelessness: Yes Protective Factors Assessment Yarsani Beliefs: Yes : No Responsible for Young Children: No Employed: No Stable Relationships: Yes Supportive Family: Yes Good Rapport with Provider: Yes Absence of Any Risk Factors Above: No Interval History Identifying Information LIBBY GAN is a 24-year-old [place] Male, [employer] [facility] senior who currently lives alone, has a history of depression, and was admitted on 06/28/24 12:05 on a 302 involuntary commitment for psychosis. Chief Complaint "If I tell you they may kill my family." Review of Systems Sleep Information Total Hours of Sleep: 4.25 Meal Information Percent Meal Consumed - Breakfast: 75 Percent Meal Consumed - Lunch: 75 Percent Meal Consumed - Dinner: 75 Subjective Subjective Patient was seen & assessed and interval progress reviewed with treatment team nursing and social work Overnight nursing reports patient responded well to Cogentin. Had a restless night's sleep getting 4.5 hours. Has been focused on making sure the doors have been locked. Noted to have been fighting sleep due to paranoia. No dystonic episodes overnight. The patient reports sleep has been improved and he denies any rigid muscle movements. On exam no dystonia of extraocular muscles or tongue. no muscle rigidity demonstrated elsewhere. Patient appears anxious when he talks to me but reports improvement. He initially presents having a past similar episode to current symptoms in fall 2022. When I tried to inquire more he reports that he is afraid that if he tells me that his mother will be killed. Unable to clarify further. He presents some difficulty answering questions and requires prompting. Video ad writer speaking Mandarin Tongan (ID: [email or web address]) was used to coordinate conversation between mother who does not speak Syriac, myself, and patient. Mother was informed of patient's situation and care plan; no concerns reported. Mother assures patient that he is safe. After the video called mother was completed patient asks if he is going to get deported. He says that his mother is not right and that there is a threat of loza rm towards herself and him and appears worried. Patient was reassured that he is safe in the hospital. He becomes paranoid that the other doors in the unit have a lock in his does not and that the other doors have a handle. Patient reassured. He reports fear that the new patient on the unit caused him to be scared. Unable to state why. Physical Exam Mental Examination Appearance: Disheveled Eye Contact: Sporadic Contact Motor Behavior: Unremarkable Speech: Slurred Mood: Anxious Affect: Fearful and Nervous Thought Process: Disorganized and Evasive Hallucinations: None Insight: Poor (persecutory delusions) Judgement: Poor Vital Signs (Past 24 Hours) Last Vital Signs Temp 36.3 C L 06/30/24 11:37 Pulse 92 H 06/30/24 20:13 Resp 18 06/30/24 20:13 BP 129/88 06/30/24 20:13 Pulse Ox 96 06/30/24 20:13 O2 Del Method Room Air 06/30/24 20:13 Results & Data ([facility]) Current Inpatient Medications Current Inpatient Medications: Current Inpatient Medications Acetaminophen (Acetaminophen 325 Mg Tab) 650 mg PO Q4H PRN PRN Reason: Headache or Minor Fever Stop: 07/28/24 12:04 Al Hydrox/Mg Hydrox/Simethicone (Aluminum/Magnesium Susp 30 Ml Udc) 30 ml PO Q4H PRN PRN Reason: GI Upset Stop: 07/28/24 12:04 Benztropine Mesylate (Benztropine Mesylate 1 Mg Tab) 1 mg PO Q8H PRN PRN Reason: EPS Stop: 07/30/24 11:39 Last Admin: 06/30/24 12:43 Dose: 1 mg Benztropine Mesylate (Benztropine Mesylate 1 Mg/Ml 2 Ml Amp) 1 mg IM Q8H PRN PRN Reason: EPS Stop: 07/30/24 11:39 Benztropine Mesylate (Benztropine Mesylate 1 Mg Tab) 1 mg PO HS MARIANA Stop: 07/30/24 21:59 Last Admin: 06/30/24 21:08 Dose: 1 mg Bismuth Subsalicylate (Bismuth Subsalicylate 262 Mg Chew) 2 tab PO Q30M PRN PRN Reason: Loose Stool/Diarrhea Stop: 07/28/24 12:04 Hydroxyzine HCl (Hydroxyzine Hcl 25 Mg Tab) 50 mg PO HSZ PRN PRN Reason: Insomnia Stop: 07/28/24 12:04 Hydroxyzine HCl (Hydroxyzine Hcl 25 Mg Tab) 25 mg PO Q4H PRN PRN Reason: Anxiety Stop: 07/28/24 12:04 Last Admin: 06/30/24 15:20 Dose: 25 mg Lorazepam (Lorazepam 2 Mg/1 Ml Vial) 1 mg IM Q6H PRN PRN Reason: Anxiety Stop: 07/28/24 13:54 Lorazepam (Lorazepam 1 Mg Tab) 1 mg PO Q6H PRN PRN Reason: Anxiety Stop: 07/28/24 14:03 Last Admin: 06/30/24 07:33 Dose: 1 mg Lorazepam (Lorazepam 1 Mg Tab) 2 mg PO HS MARIANA Stop: 07/29/24 21:59 Last Admin: 06/30/24 21:09 Dose: 2 mg Magnesium Hydroxide (Magnesium Hydroxide Susp 30 Ml Udc) 30 ml PO DAILY PRN PRN Reason: Constipation Stop: 07/28/24 12:04 Olanzapine (Olanzapine 5 Mg Tablet) 15 mg PO HS MARIANA Stop: 07/30/24 21:59 Last Admin: 06/30/24 21:09 Dose: 15 mg Olanzapine (Olanzapine 5 Mg Tablet) 5 mg PO QAM MARIANA Stop: 07/31/24 08:59 Last Admin: 07/01/24 08:38 Dose: 5 mg Olanzapine (Olanzapine Zydis 5 Mg Orally Dis. Tab) 5 mg PO BID PRN PRN Reason: Agitation Stop: 07/30/24 20:59 Propranolol HCl (Propranolol Hcl 10 Mg Tab) 10 mg PO TID MARIANA Stop: 07/30/24 09:49 Last Admin: 07/01/24 13:12 Dose: 10 mg Sodium Chloride (Sodium Chloride 0.65% Na Soln 45 Ml ([place])) 1 - 2 sprays NA PRN PRN PRN Reason: Nasal Dryness/Congestion Stop: 07/28/24 12:04 Mental Health & Subst Abuse Tx Psychiatrist Name of Psychiatrist: Pacheco Lobo-Danny Madsen Psychiatrist's Date Of Appointment With Psychiatric Provider: 07/23/24 Time of Appointment with Psychiatrist: 2:50PM Psychiatric Appointment Comment: Intake appt will take 1.5 hrs. Please bring insurance card to appt Therapist Name of Therapist: None Aircraft Power Plant Assembler Name of Aircraft Power Plant Assembler: None Post Discharge Appointments Primary Care Physician Name Of Family Doctor/PCP: FEROZ Other #1: Name of Aftercare Appointment: IPG Phone Number of Aftercare Appointment: Date of Aftercare Appointment: 07/19/24 Time of Aftercare Appointment: 11AM Aftercare Appointment Comment: First Episode Psychosis Program. [address], [place]
[2024-07-01] MEDS: INFLUENZA VACC TS2024-25(6m+)/PF (IIV3) 0.5mL Syr IM ONE (21:25)
[2024-07-02] MEDS: CHOLECALCIFEROL 125 MCG (5,000 UNITS) TAB PO SCH (09:26)
--- NOTE | 2024-07-02 12:20 | Psychiatric Progress Note ---
Date of Service July 02, 2024 Impression / Recommendations Impression LIBBY GAN is a 24-year-old Greenlandic Male, [employer] [facility] [employer] senior who currently lives alone, has a history of depression, and was admitted on 06/28/24 12:05 on a 302 involuntary commitment for psychosis. Patient presenting paranoia and persecutory delusions regarding fear of of himself and family after being triggered on [employer] online chat June 13. He presents a disorganized thought process, extreme anxiety, insomnia. Poor reality testing. Recently called police for assistance and did not let them inside his apartment due to excess fears. Presented to the hospital and then attempted to elope. Has required agitation and anxiety PRNs for behaviors. Concern for prodromal cognitive difficulties, perceptual changes, decline in academic performance, and social withdrawal seen in Schizophrenia. Possible past hypomanic/marky episodes however unclear. Does not appear to be substance induced. A:Patient acutely psychotic. Presents persecutory delusions of being targeted and that him and his family's life is in danger. Today patient was more forthcoming about past episodes of psychosis. Continues to present difficulty falling and staying asleep. Vitals are stable and appears to be tolerating her antipsychotic medications. Appears less physically anxious with propranolol. Today completed the 303 involuntary commitment and was approved. Less a.m. sedation after receiving olanzapine. Given sleep impairments will switch to longer acting benzodiazepine and will schedule the evening. Overall, I spent a total of 60 minutes with this case including review of chart records, nursing report, review of lab work, direct evaluation of the patient at bedside, counseling the patient, multidisciplinary team meeting, court hearing, orders, and documentation in the electronic health record. (1) Unspecified psychosis not due to a substance or known physiological condition: (2) Insomnia: (3) Persecutory delusion: (4) Recurrent thoughts of : (5) Acute paranoia: (6) Anxiety: Plan 07/02/24: D/C Lorazepam. Start Clonazepam 1mg HS. Start Vitamin D 5000u daily. 07/01/24: Continue medications and treatment plan. 06/30/24: D/C Risperidone. Start Olanzapine 5mg QAM, 15mg HS. Benztropine 1mg HS and PRN started. Start Propranolol 10mg TID. Vitals TID. 06/29/24:The patient was admitted to the [facility] ([facility] mental [facility] unit) on q15 min checks (behavioral with suicide precautions) for safety. The patient will participate in group, recreational, and milieu therapies and will be offered additional individual and family sessions as clinically appropriate. -Risperidone 1mg QAM, 2mg HS -Lorazepam 2mg HS -CK, fasting lipid panel, HbA1c, Vitamin D, Vitamin B12 labs Inventory Assets Strengths: independent, family support Needs: improved insight, improved reality testing Suicide Risk Level Suicide Risk Level: High-Moderate (q15 min suicide checks) Risk Factors Assessment Male: Yes : No Do You Have Access To A Gun?: No Health Problems: No Mental Health Diagnoses: Yes Substance Use Disorders: No Previous Attempt: No Family History of Suicide: No Previous Psychiatric Hospitalization: No Hopelessness: Yes Protective Factors Assessment Rastafari Beliefs: Yes : No Responsible for Young Children: No Employed: No Stable Relationships: Yes Supportive Family: Yes Good Rapport with Provider: Yes Absence of Any Risk Factors Above: No Interval History Identifying Information LIBBY GAN is a 24-year-old Greenlandic Male, [employer] [facility] [employer] senior who currently lives alone, has a history of depression, and was admitted on 06/28/24 12:05 on a 302 involuntary commitment for psychosis. Chief Complaint Psychosis Review of Systems Sleep Information Total Hours of Sleep: 4.25 Meal Information Percent Meal Consumed - Breakfast: 100 Percent Meal Consumed - Lunch: 75 Percent Meal Consumed - Dinner: 90 Subjective Subjective Patient was seen & assessed and interval progress reviewed with treatment team nursing and social work Nursing reports overnight patient has been paranoid and disorganized at times. He had difficulty falling asleep going to sleep at 1:30 AM for 4-1/2 hours. Complained of anxiety and received lorazepam as needed at 6 PM. Today on interview he reports an improvement in anxiety and mood. Says that his mental illness has improved. Says he feels more rested. Presents some thought disorganization when answering questions. Reports feeling "shock, afraid, anxious". I asked him about a past episode he had in fall 2022. He is initially hesitant and then he asked that it stays only between us. Reports being in [facility] which is close to his home city of [facility]. says he was in Instagram group With 3 of his roommates and there was an argument. One of the guys called him to spy and he got emotional. He reports not being able to remember anything clearly and was hitting his head slightly. Said he went into a nervous mental state. He was fearful and was unable to sleep. He called his father for help. At that time he was not eating food or drinking fluids. He was on the way back to [place] and he was at the airport area in [facility]. He could not find his way to the [facility]. He had asked random people for help and he was lost. He was on the bus for workers and he asked the bushwalking guide to take him to the airport. He called his mother saying that he was lost in the airport. In the middle of the interview by phone makes a noise because of a text message and patient becomes acutely paranoid asking what that sound is. He reports at the time feeling that something terrible may happen. He felt dehydrated and his heart was racing. His mother arrived to help him. An ambulance took him to a public hospital. He reports feeling scared and paranoid in the hospital. He talks about another individual there that he was suspicious of. Their phone kept getting messages and he thought it was about him. He reports taking medications for sleep and it was helpful. Reports "falling into a nervous and psychotic state". He was "fearful of everything". He was hiding in the bathroom and did not want to come out. He reports not murmuring what medications he took and that he did not take them after he left the hospital. Physical Exam Mental Examination Appearance: Disheveled Eye Contact: Sporadic Contact Motor Behavior: Unremarkable Speech: Slurred Mood: Anxious Affect: Fearful and Nervous Thought Process: Disorganized Hallucinations: None Insight: Poor (persecutory delusions, improving) Judgement: Poor Vital Signs (Past 24 Hours) Last Vital Signs Temp 36.5 C 07/02/24 06:35 Pulse 105 H 07/02/24 06:35 Resp 16 07/02/24 06:35 BP 117/83 07/02/24 06:35 Pulse Ox 99 07/01/24 21:27 O2 Del Method Room Air 07/01/24 21:27 Results & Data ([facility]) Current Inpatient Medications Current Inpatient Medications: Current Inpatient Medications Acetaminophen (Acetaminophen 325 Mg Tab) 650 mg PO Q4H PRN PRN Reason: Headache or Minor Fever Stop: 07/28/24 12:04 Al Hydrox/Mg Hydrox/Simethicone (Aluminum/Magnesium Susp 30 Ml Udc) 30 ml PO Q4H PRN PRN Reason: GI Upset Stop: 07/28/24 12:04 Benztropine Mesylate (Benztropine Mesylate 1 Mg Tab) 1 mg PO Q8H PRN PRN Reason: EPS Stop: 07/30/24 11:39 Last Admin: 06/30/24 12:43 Dose: 1 mg Benztropine Mesylate (Benztropine Mesylate 1 Mg/Ml 2 Ml Amp) 1 mg IM Q8H PRN PRN Reason: EPS Stop: 07/30/24 11:39 Benztropine Mesylate (Benztropine Mesylate 1 Mg Tab) 1 mg PO HS MARIANA Stop: 07/30/24 21:59 Last Admin: 07/01/24 21:12 Dose: 1 mg Bismuth Subsalicylate (Bismuth Subsalicylate 262 Mg Chew) 2 tab PO Q30M PRN PRN Reason: Loose Stool/Diarrhea Stop: 07/28/24 12:04 Hydroxyzine HCl (Hydroxyzine Hcl 25 Mg Tab) 50 mg PO HSZ PRN PRN Reason: Insomnia Stop: 07/28/24 12:04 Hydroxyzine HCl (Hydroxyzine Hcl 25 Mg Tab) 25 mg PO Q4H PRN PRN Reason: Anxiety Stop: 07/28/24 12:04 Last Admin: 06/30/24 15:20 Dose: 25 mg Lorazepam (Lorazepam 2 Mg/1 Ml Vial) 1 mg IM Q6H PRN PRN Reason: Anxiety Stop: 07/28/24 13:54 Lorazepam (Lorazepam 1 Mg Tab) 1 mg PO Q6H PRN PRN Reason: Anxiety Stop: 07/28/24 14:03 Last Admin: 07/01/24 18:10 Dose: 1 mg Lorazepam (Lorazepam 1 Mg Tab) 2 mg PO HS MARIANA Stop: 07/29/24 21:59 Last Admin: 07/01/24 21:15 Dose: 2 mg Magnesium Hydroxide (Magnesium Hydroxide Susp 30 Ml Udc) 30 ml PO DAILY PRN PRN Reason: Constipation Stop: 07/28/24 12:04 Olanzapine (Olanzapine 5 Mg Tablet) 15 mg PO HS MARIANA Stop: 07/30/24 21:59 Last Admin: 07/01/24 21:13 Dose: 15 mg Olanzapine (Olanzapine 5 Mg Tablet) 5 mg PO QAM MARIANA Stop: 07/31/24 08:59 Last Admin: 07/02/24 07:59 Dose: 5 mg Olanzapine (Olanzapine Zydis 5 Mg Orally Dis. Tab) 5 mg PO BID PRN PRN Reason: Agitation Stop: 07/30/24 20:59 Propranolol HCl (Propranolol Hcl 10 Mg Tab) 10 mg PO TID MARIANA Stop: 07/30/24 09:49 Last Admin: 07/02/24 07:59 Dose: 10 mg Sodium Chloride (Sodium Chloride 0.65% Na Soln 45 Ml ([place])) 1 - 2 sprays NA PRN PRN PRN Reason: Nasal Dryness/Congestion Stop: 07/28/24 12:04 Vitamin D (Cholecalciferol 125 Mcg (5,000 Units) Tab) 125 mcg PO QAM [facility] Stop: 08/01/24 09:14 Last Admin: 07/02/24 09:26 Dose: 125 mcg Mental Health & Subst Abuse Tx Psychiatrist Name of Psychiatrist: [facility]-Danny Madsen Psychiatrist's Date Of Appointment With Psychiatric Provider: 07/23/24 Time of Appointment with Psychiatrist: 2:50PM Psychiatric Appointment Comment: Intake appt will take 1.5 hrs. Please bring insurance card to appt Therapist Name of Therapist: None Associate Director Name of Associate Director: None Post Discharge Appointments Primary Care Physician Name Of Family Doctor/PCP: FEROZ Other #1: Name of Aftercare Appointment: [facility] Phone Number of Aftercare Appointment: Date of Aftercare Appointment: 07/19/24 Time of Aftercare Appointment: 11AM Aftercare Appointment Comment: First Episode Psychosis Program. [address], [place]
[2024-07-02] MEDS: clonazePAM 1 MG TAB PO SCH (19:29)
--- NOTE | 2024-07-03 09:31 | Psychiatric Progress Note ---
Date of Service July 03, 2024 Impression / Recommendations Impression LIBBY GAN is a 24-year-old Faro[place] Male, [employer] senior who currently lives alone, has a history of depression, and was admitted on 06/28/24 12:05 on a 302 involuntary commitment for psychosis. Patient presenting paranoia and persecutory delusions regarding fear of of himself and family after being triggered on [employer] online chat June 13. He presents a disorganized thought process, extreme anxiety, insomnia. Poor reality testing. Recently called police for assistance and did not let them inside his apartment due to excess fears. Presented to the hospital and then attempted to elope. Has required agitation and anxiety PRNs for behaviors. Concern for prodromal cognitive difficulties, perceptual changes, decline in academic performance, and social withdrawal seen in Schizophrenia. Possible past hypomanic/marky episodes however unclear. Does not appear to be substance induced. A:Some lessening of paranoia today after sleeping well overnight, less fixated on need to ensure his mother is safe but remains very guarded. Tolerating current medications with some symptom improvement so far. Overall, I spent a total of 36 minutes on this case including meeting with the patient, reviewing the chart, nursing report, multidisciplinary team meeting, orders, and documentation. (1) Unspecified psychosis not due to a substance or known physiological condition: (2) Insomnia: (3) Persecutory delusion: (4) Recurrent thoughts of : (5) Acute paranoia: (6) Anxiety: Plan 07/03/2024: Continue current medications and tx plan. 07/02/24: D/C Lorazepam. Start Clonazepam 1mg HS. Start Vitamin D 5000u daily. 07/01/24: Continue medications and treatment plan. 06/30/24: D/C Risperidone. Start Olanzapine 5mg QAM, 15mg HS. Benztropine 1mg HS and PRN started. Start Propranolol 10mg TID. Vitals TID. 06/29/24:The patient was [facility] ([facility] inpatient mental health unit) on q15 min checks (behavioral with suicide precautions) for safety. The patient will participate in group, recreational, and milieu therapies and will be offered additional individual and family sessions as clinically appropriate. -Risperidone 1mg QAM, 2mg HS -Lorazepam 2mg HS -CK, fasting lipid panel, HbA1c, Vitamin D, Vitamin B12 labs Inventory Assets Strengths: independent, family support Needs: improved insight, improved reality testing Suicide Risk Level Suicide Risk Level: Moderate (q15 min suicide checks) (psychosis and hx of depression but denies any command AH, denies SI and feels safe in the hospital and feels able to ask for help. 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 Chief Complaint "I'm doing ok". Review of Systems Sleep Information Total Hours of Sleep: 7 Meal Information Percent Meal Consumed - Breakfast: 100 Percent Meal Consumed - Lunch: 100 Percent Meal Consumed - Dinner: 100 Subjective Subjective Patient was seen & assessed and interval progress reviewed with nursing. Less paranoid last evening but with some confusion after falling asleep on the couch. This morning less focused on need to verify his mother was safe. Reports sleeping better overnight, discussed his recent paranoia and he feels this is lessening "less of that". Denies any medication side effects. Able to speak to hearing AH in the past, denies any currently. Reviewed history of SI last year but denies any currently. Physical Exam Psychiatric Orientation: alert and oriented x 3 Apperance: appropriately dressed and appropriately groomed Eye Contact: + fair eye contact Motor Behavior: no abnormal motor movements Speech: + abnormal rate/rhythm/volume of speech (monotone) Affect: + flat affect Mood: no depressed mood and no anxious mood Thought Process: + concrete thought process Thought Content: + paranoid Suicidal Thoughts: denies suicidal thoughts Homicidal Thoughts: denies homicidal thoughts Hallucinations: no auditory hallucinations and no visual hallucinations Insight: + limited insight Judgment: + limited judgement Vital Signs (Past 24 Hours) Last Vital Signs Temp 36.4 C L 07/03/24 06:32 Pulse 105 H 07/03/24 06:32 Resp 16 07/03/24 06:32 BP 116/81 07/03/24 06:32 Pulse Ox 99 07/02/24 19:28 O2 Del Method Room Air 07/02/24 19:28 Results & Data ([facility]) Current Inpatient Medications Current Inpatient Medications: Current Inpatient Medications Acetaminophen (Acetaminophen 325 Mg Tab) 650 mg PO Q4H PRN PRN Reason: Headache or Minor Fever Stop: 07/28/24 12:04 Al Hydrox/Mg Hydrox/Simethicone (Aluminum/Magnesium Susp 30 Ml Udc) 30 ml PO Q4H PRN PRN Reason: GI Upset Stop: 07/28/24 12:04 Benztropine Mesylate (Benztropine Mesylate 1 Mg Tab) 1 mg PO Q8H PRN PRN Reason: EPS Stop: 07/30/24 11:39 Last Admin: 06/30/24 12:43 Dose: 1 mg Benztropine Mesylate (Benztropine Mesylate 1 Mg/Ml 2 Ml Amp) 1 mg IM Q8H PRN PRN Reason: EPS Stop: 07/30/24 11:39 Benztropine Mesylate (Benztropine Mesylate 1 Mg Tab) 1 mg PO HS MARIANA Stop: 07/30/24 21:59 Last Admin: 07/02/24 20:52 Dose: 1 mg Bismuth Subsalicylate (Bismuth Subsalicylate 262 Mg Chew) 2 tab PO Q30M PRN PRN Reason: Loose Stool/Diarrhea Stop: 07/28/24 12:04 Clonazepam (Clonazepam 1 Mg Tab) 1 mg PO DAILY@1930 MARIANA Stop: 08/01/24 19:29 Last Admin: 07/02/24 19:29 Dose: 1 mg Hydroxyzine HCl (Hydroxyzine Hcl 25 Mg Tab) 50 mg PO HSZ PRN PRN Reason: Insomnia Stop: 07/28/24 12:04 Hydroxyzine HCl (Hydroxyzine Hcl 25 Mg Tab) 25 mg PO Q4H PRN PRN Reason: Anxiety Stop: 07/28/24 12:04 Last Admin: 06/30/24 15:20 Dose: 25 mg Lorazepam (Lorazepam 2 Mg/1 Ml Vial) 1 mg IM Q6H PRN PRN Reason: Anxiety Stop: 07/28/24 13:54 Lorazepam (Lorazepam 1 Mg Tab) 1 mg PO Q6H PRN PRN Reason: Anxiety Stop: 07/28/24 14:03 Last Admin: 07/01/24 18:10 Dose: 1 mg Magnesium Hydroxide (Magnesium Hydroxide Susp 30 Ml Udc) 30 ml PO DAILY PRN PRN Reason: Constipation Stop: 07/28/24 12:04 Olanzapine (Olanzapine 5 Mg Tablet) 15 mg PO HS [facility] Stop: 07/30/24 21:59 Last Admin: 07/02/24 20:51 Dose: 15 mg Olanzapine (Olanzapine 5 Mg Tablet) 5 mg PO QAM [facility] Stop: 07/31/24 08:59 Last Admin: 07/03/24 08:26 Dose: 5 mg Olanzapine (Olanzapine Zydis 5 Mg Orally Dis. Tab) 5 mg PO BID PRN PRN Reason: Agitation Stop: 07/30/24 20:59 Propranolol HCl (Propranolol Hcl 10 Mg Tab) 10 mg PO TID MARIANA Stop: 07/30/24 09:49 Last Admin: 07/03/24 08:27 Dose: 10 mg Sodium Chloride (Sodium Chloride 0.65% Na Soln 45 Ml ([place])) 1 - 2 sprays NA PRN PRN PRN Reason: Nasal Dryness/Congestion Stop: 07/28/24 12:04 Vitamin D (Cholecalciferol 125 Mcg (5,000 Units) Tab) 125 mcg PO QAM [facility] Stop: 08/01/24 09:14 Last Admin: 07/03/24 08:26 Dose: 125 mcg Mental Health & Subst Abuse Tx Psychiatrist Name of Psychiatrist: Pacheco Madsen Psychiatrist's Date Of Appointment With Psychiatric Provider: 07/23/24 Time of Appointment with Psychiatrist: 2:50PM Psychiatric Appointment Comment: Intake appt will take 1.5 hrs. Please bring insurance card to appt Therapist Name of Therapist: None Tile Molder Name of Tile Molder: None Post Discharge Appointments Primary Care Physician Name Of Family Doctor/PCP: Zahraa
--- NOTE | 2024-07-04 09:29 | Psychiatric Progress Note ---
Date of Service July 04, 2024 Impression / Recommendations Impression LIBBY GAN is a 24-year-old [place] Male, [employer] who currently lives alone, has a history of depression, and was admitted on 06/28/24 12:05 on a 302 involuntary commitment for psychosis. Patient presenting paranoia and persecutory delusions regarding fear of of himself and family after being triggered on [employer] online chat June 13. He presents a disorganized thought process, extreme anxiety, insomnia. Poor reality testing. Recently called police for assistance and did not let them inside his apartment due to excess fears. Presented to the hospital and then attempted to elope. Has required agitation and anxiety PRNs for behaviors. Concern for prodromal cognitive difficulties, perceptual changes, decline in academic performance, and social withdrawal seen in Schizophrenia. Possible past hypomanic/marky episodes however unclear. Does not appear to be substance induced. A: Didn't sleep quite as well last night though he reports feeling well rested. Less paranoia but still with some fixation on rules and feeling that missing items on his meal tray may be due to his actions. Suspect increased urinary hesitancy is from anticholinergic medication side effects, will discontinue Cogentin as no further EPS since haldol and risperidone were discontinued. Will start prior to admission ketoconazole and triamcinolone for seborrheic dermatitis which he consents to. Overall, I spent a total of 40 minutes on this case including meeting with the patient, reviewing the chart, nursing report, multidisciplinary team meeting, orders, and documentation. (1) Unspecified psychosis not due to a substance or known physiological condition: (2) Insomnia: (3) Persecutory delusion: (4) Acute paranoia: (5) Anxiety: Plan 07/04/2024: Discontinue scheduled Cogentin. Start ketoconazole topical prn and triamcinolone acetonide topical prn. 07/03/2024: Continue current medications and tx plan. 07/02/24: D/C Lorazepam. Start Clonazepam 1mg HS. Start Vitamin D 5000u daily. 07/01/24: Continue medications and treatment plan. 06/30/24: D/C Risperidone. Start Olanzapine 5mg QAM, 15mg HS. Benztropine 1mg HS and PRN started. Start Propranolol 10mg TID. Vitals TID. 06/29/24:The patient was [facility] on q15 min checks (behavioral with suicide precautions) for safety. The patient will participate in group, recreational, and milieu therapies and will be offered additional individual and family sessions as clinically appropriate. -Risperidone 1mg QAM, 2mg HS -Lorazepam 2mg HS -CK, fasting lipid panel, HbA1c, Vitamin D, Vitamin B12 labs Inventory Assets Strengths: independent, family support Needs: improved insight, improved reality testing Suicide Risk Level Suicide Risk Level: Moderate (q15 min suicide checks) (psychosis and hx of depression but denies any command AH, denies SI and feels safe in the hospital and feels able to ask for help. 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 Chief Complaint "Initially not good because I failed to solve a Rubic's cube but now ok". Review of Systems Sleep Information Total Hours of Sleep: 5.75 Meal Information Percent Meal Consumed - Breakfast: 100 Percent Meal Consumed - Lunch: 100 Percent Meal Consumed - Dinner: 90 Subjective Subjective Patient was seen & assessed and interval progress reviewed with nursing. Described some urinary difficulty this morning, felt able to empty his bladder but found it took longer. Having some thought blocking at times, speech and thought organization remains slowed. Feels his sleep is improving. Still concerned that he's not following the rules or doing what he is supposed to. Focused on needing to read the full patient handbook today and told RN he thought food items were left off his tray due to breaking a rule of requesting too many items or for not doing what was expected of him. Reviewed some sense of urinary hesitancy. He denies a history of UTIs, reports some recent urinary symptoms for which he was [facility] at [facility] and had normal UA. He agrees the medication could be causing symptoms again. Agrees to let nurses know if his symptoms worsen or do not improve. Reviewed his history of seborrheic dermatitis and desire to restart his topical medications for this due to scalp and face irritation. He denies any other questions or concerns. Physical Exam Psychiatric Orientation: alert and oriented x 3 Apperance: appropriately dressed and appropriately groomed Eye Contact: + fair eye contact Motor Behavior: no abnormal motor movements Speech: + abnormal rate/rhythm/volume of speech (monotone) Affect: + flat affect Mood: no depressed mood and no anxious mood Thought Process: + concrete thought process Thought Content: + paranoid (but lessening) Suicidal Thoughts: denies suicidal thoughts Homicidal Thoughts: denies homicidal thoughts Hallucinations: no auditory hallucinations and no visual hallucinations Insight: + limited insight Judgment: + limited judgement Vital Signs (Past 24 Hours) Last Vital Signs Temp 36.4 C L 07/04/24 06:21 Pulse 120 H 07/04/24 06:22 Resp 18 07/04/24 06:21 BP 118/81 07/04/24 06:22 Pulse Ox 99 07/03/24 22:00 O2 Del Method Room Air 07/03/24 22:00 Results & Data ([facility]) Current Inpatient Medications Current Inpatient Medications: Current Inpatient Medications Acetaminophen (Acetaminophen 325 Mg Tab) 650 mg PO Q4H PRN PRN Reason: Headache or Minor Fever Stop: 07/28/24 12:04 Al Hydrox/Mg Hydrox/Simethicone (Aluminum/Magnesium Susp 30 Ml Udc) 30 ml PO Q4H PRN PRN Reason: GI Upset Stop: 07/28/24 12:04 Benztropine Mesylate (Benztropine Mesylate 1 Mg Tab) 1 mg PO Q8H PRN PRN Reason: EPS Stop: 07/30/24 11:39 Last Admin: 06/30/24 12:43 Dose: 1 mg Benztropine Mesylate (Benztropine Mesylate 1 Mg/Ml 2 Ml Amp) 1 mg IM Q8H PRN PRN Reason: EPS Stop: 07/30/24 11:39 Benztropine Mesylate (Benztropine Mesylate 1 Mg Tab) 1 mg PO HS MARIANA Stop: 07/30/24 21:59 Last Admin: 07/03/24 21:43 Dose: 1 mg Bismuth Subsalicylate (Bismuth Subsalicylate 262 Mg Chew) 2 tab PO Q30M PRN PRN Reason: Loose Stool/Diarrhea Stop: 07/28/24 12:04 Clonazepam (Clonazepam 1 Mg Tab) 1 mg PO DAILY@1930 MARIANA Stop: 08/01/24 19:29 Last Admin: 07/03/24 19:19 Dose: 1 mg Hydroxyzine HCl (Hydroxyzine Hcl 25 Mg Tab) 50 mg PO HSZ PRN PRN Reason: Insomnia Stop: 07/28/24 12:04 Hydroxyzine HCl (Hydroxyzine Hcl 25 Mg Tab) 25 mg PO Q4H PRN PRN Reason: Anxiety Stop: 07/28/24 12:04 Last Admin: 06/30/24 15:20 Dose: 25 mg Lorazepam (Lorazepam 2 Mg/1 Ml Vial) 1 mg IM Q6H PRN PRN Reason: Anxiety Stop: 07/28/24 13:54 Lorazepam (Lorazepam 1 Mg Tab) 1 mg PO Q6H PRN PRN Reason: Anxiety Stop: 07/28/24 14:03 Last Admin: 07/01/24 18:10 Dose: 1 mg Magnesium Hydroxide (Magnesium Hydroxide Susp 30 Ml Udc) 30 ml PO DAILY PRN PRN Reason: Constipation Stop: 07/28/24 12:04 Olanzapine (Olanzapine 5 Mg Tablet) 15 mg PO HS MARIANA Stop: 07/30/24 21:59 Last Admin: 07/03/24 21:43 Dose: 15 mg Olanzapine (Olanzapine 5 Mg Tablet) 5 mg PO QAM [facility] Stop: 07/31/24 08:59 Last Admin: 07/03/24 08:26 Dose: 5 mg Olanzapine (Olanzapine Zydis 5 Mg Orally Dis. Tab) 5 mg PO BID PRN PRN Reason: Agitation Stop: 07/30/24 20:59 Propranolol HCl (Propranolol Hcl 10 Mg Tab) 10 mg PO TID MARIANA Stop: 07/30/24 09:49 Last Admin: 07/04/24 09:14 Dose: 10 mg Sodium Chloride (Sodium Chloride 0.65% Na Soln 45 Ml ([place])) 1 - 2 sprays NA PRN PRN PRN Reason: Nasal Dryness/Congestion Stop: 07/28/24 12:04 Vitamin D (Cholecalciferol 125 Mcg (5,000 Units) Tab) 125 mcg PO QAM MARIANA Stop: 08/01/24 09:14 Last Admin: 07/04/24 09:15 Dose: 125 mcg Mental Health & Subst Abuse Tx Psychiatrist Name of Psychiatrist: Pacheco Madsen Psychiatrist's Date Of Appointment With Psychiatric Provider: 07/23/24 Time of Appointment with Psychiatrist: 2:50PM Psychiatric Appointment Comment: Intake appt will take 1.5 hrs. Please bring insurance card to appt Therapist Name of Therapist: None Field Mechanic/Site Lead Name of Field Mechanic/Site Lead: None Post Discharge Appointments Primary Care Physician Name Of Family Doctor/PCP: FEROZ
[2024-07-04] MEDS: SODIUM CHLORIDE 0.65% NA SOLN 45 ML (OCEAN) PRN (19:12)
--- NOTE | 2024-07-05 09:07 | Psychiatric Progress Note ---
Date of Service July 05, 2024 Impression / Recommendations Impression LIBBY GAN is a 24-year-old [place] Male, [employer] senior who currently lives alone, has a history of depression, and was admitted on 06/28/24 12:05 on a 302 involuntary commitment for psychosis. Patient presenting paranoia and persecutory delusions regarding fear of of himself and family after being triggered on [employer] online chat June 13. He presents a disorganized thought process, extreme anxiety, insomnia. Poor reality testing. Recently called police for assistance and did not let them inside his apartment due to excess fears. Presented to the hospital and then attempted to elope. Has required agitation and anxiety PRNs for behaviors. Concern for prodromal cognitive difficulties, perceptual changes, decline in academic performance, and social withdrawal seen in Schizophrenia. Possible past hypomanic/marky episodes however unclear. Does not appear to be substance induced. Diagnostically consistent with likely schizophrenia. A:Increased paranoia today, guarded, more suspicious. No further urinary issues today. Will consider further titration of scheduled olanzapine if symptoms persist but will hold off for now given recent urinary hesitancy/retention concerns and already at FDA max dose, but will add additional prn doses if needed for increased psychic distress/worsening of paranoia/psychosis. Given worsening symptoms today after steady improvement this weekend wonder about possible cheeking or diversion of his medications however he is clear about finding the medication helpful and wants to take it so this seems unlikely. Overall, I spent a total of 36 minutes on this case including meeting with the patient, reviewing the chart, nursing report, multidisciplinary team meeting, orders, and documentation. (1) Unspecified psychosis not due to a substance or known physiological condition: (2) Schizophrenia: (3) Insomnia: (4) Persecutory delusion: (5) Acute paranoia: (6) Anxiety: Plan 07/05/2024: Continue current medications and tx plan. Olanzapine 2.5mg BID ODT prn for psychosis. 07/04/2024: Discontinue scheduled Cogentin. Start ketoconazole topical prn and triamcinolone acetonide topical prn. 07/03/2024: Continue current medications and tx plan. 07/02/24: D/C Lorazepam. Start Clonazepam 1mg HS. Start Vitamin D 5000u daily. 07/01/24: Continue medications and treatment plan. 06/30/24: D/C Risperidone. Start Olanzapine 5mg QAM, 15mg HS. Benztropine 1mg HS and PRN started. Start Propranolol 10mg TID. Vitals TID. 06/29/24:The patient was admitted to the [facility]) on q15 min checks (behavioral with suicide precautions) for safety. The patient will participate in group, recreational, and milieu therapies and will be offered additional individual and family sessions as clinically appropriate. -Risperidone 1mg QAM, 2mg HS -Lorazepam 2mg HS -CK, fasting lipid panel, HbA1c, Vitamin D, Vitamin B12 labs Inventory Assets Strengths: independent, family support Needs: improved insight, improved reality testing Suicide Risk Level Suicide Risk Level: Moderate (q15 min suicide checks) (psychosis and hx of depression but denies any command AH, denies SI and feels safe in the hospital and feels able to ask for help. 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 Chief Complaint "I don't see how that's relevant". Review of Systems Sleep Information Total Hours of Sleep: 7 Meal Information Percent Meal Consumed - Breakfast: 100 Percent Meal Consumed - Lunch: 100 Percent Meal Consumed - Dinner: 100 Subjective Subjective Patient was seen & assessed and interval progress reviewed with treatment team nursing and social work. Attending groups. Last evening rated his mood as "tired". Slept 7 hours. Showered yesterday. Today more disorganized, trying to put items into his water bottle. Suspicious of why housekeeping left a paper garbage bag in his room. After discussing this he notes "it's just me thinking too much, the paranoia". He feels schizophrenia is an accurate diagnosis and describes failing a course because he left the essay exam "completely blank" because he couldn't organize his thoughts. Gets very guarded and irritable when I ask him about his other exams. Physical Exam Psychiatric Orientation: alert, oriented x 3 and + guarded Apperance: appropriately dressed and appropriately groomed Eye Contact: + fair eye contact Motor Behavior: no abnormal motor movements Speech: + abnormal rate/rhythm/volume of speech (monotone) Affect: + flat affect Mood: + depressed mood, + anxious mood and + irritable mood Thought Process: + concrete thought process Thought Content: + paranoid Suicidal Thoughts: denies suicidal thoughts Homicidal Thoughts: denies homicidal thoughts Hallucinations: no auditory hallucinations and no visual hallucinations Insight: + limited insight Judgment: + limited judgement Vital Signs (Past 24 Hours) Last Vital Signs Temp 36.6 C 07/05/24 06:38 Pulse 97 H 07/05/24 06:39 Resp 16 07/05/24 06:38 BP 111/78 07/05/24 06:39 Pulse Ox 99 07/03/24 22:00 O2 Del Method Room Air 07/03/24 22:00 Results & Data ([facility]) Current Inpatient Medications Current Inpatient Medications: Current Inpatient Medications Acetaminophen (Acetaminophen 325 Mg Tab) 650 mg PO Q4H PRN PRN Reason: Headache or Minor Fever Stop: 07/28/24 12:04 Al Hydrox/Mg Hydrox/Simethicone (Aluminum/Magnesium Susp 30 Ml Udc) 30 ml PO Q4H PRN PRN Reason: GI Upset Stop: 07/28/24 12:04 Benztropine Mesylate (Benztropine Mesylate 1 Mg Tab) 1 mg PO Q8H PRN PRN Reason: EPS Stop: 07/30/24 11:39 Last Admin: 06/30/24 12:43 Dose: 1 mg Benztropine Mesylate (Benztropine Mesylate 1 Mg/Ml 2 Ml Amp) 1 mg IM Q8H PRN PRN Reason: EPS Stop: 07/30/24 11:39 Bismuth Subsalicylate (Bismuth Subsalicylate 262 Mg Chew) 2 tab PO Q30M PRN PRN Reason: Loose Stool/Diarrhea Stop: 07/28/24 12:04 Clonazepam (Clonazepam 1 Mg Tab) 1 mg PO DAILY@1930 MARIANA Stop: 08/01/24 19:29 Last Admin: 07/04/24 18:38 Dose: 1 mg Hydroxyzine HCl (Hydroxyzine Hcl 25 Mg Tab) 50 mg PO HSZ PRN PRN Reason: Insomnia Stop: 07/28/24 12:04 Hydroxyzine HCl (Hydroxyzine Hcl 25 Mg Tab) 25 mg PO Q4H PRN PRN Reason: Anxiety Stop: 07/28/24 12:04 Last Admin: 06/30/24 15:20 Dose: 25 mg Ketoconazole (Ketoconazole 2% Cr 15 Gm Tube) 1 appln EXT DAILY PRN PRN Reason: scalp irritation/flaking Stop: 07/14/24 12:34 Lorazepam (Lorazepam 2 Mg/1 Ml Vial) 1 mg IM Q6H PRN PRN Reason: Anxiety Stop: 07/28/24 13:54 Lorazepam (Lorazepam 1 Mg Tab) 1 mg PO Q6H PRN PRN Reason: Anxiety Stop: 07/28/24 14:03 Last Admin: 07/01/24 18:10 Dose: 1 mg Magnesium Hydroxide (Magnesium Hydroxide Susp 30 Ml Udc) 30 ml PO DAILY PRN PRN Reason: Constipation Stop: 07/28/24 12:04 Olanzapine (Olanzapine 5 Mg Tablet) 15 mg PO HS MARIANA Stop: 07/30/24 21:59 Last Admin: 07/04/24 20:50 Dose: 15 mg Olanzapine (Olanzapine 5 Mg Tablet) 5 mg PO QAM MARIANA Stop: 07/31/24 08:59 Last Admin: 07/04/24 09:52 Dose: 5 mg Olanzapine (Olanzapine Zydis 5 Mg Orally Dis. Tab) 5 mg PO BID PRN PRN Reason: Agitation Stop: 07/30/24 20:59 Propranolol HCl (Propranolol Hcl 10 Mg Tab) 10 mg PO TID MARIANA Stop: 07/30/24 09:49 Last Admin: 07/04/24 20:50 Dose: 10 mg Sodium Chloride (Sodium Chloride 0.65% Na Soln 45 Ml ([place])) 1 - 2 sprays NA PRN PRN PRN Reason: Nasal Dryness/Congestion Stop: 07/28/24 12:04 Last Admin: 07/04/24 19:12 Dose: 2 sprays Triamcinolone Acetonide (Triamcinolone Acet 0.1% Cr 80 Gm Tube) 1 appln EXT DAILY PRN PRN Reason: facial redness/itching Stop: 08/03/24 12:34 Vitamin D (Cholecalciferol 125 Mcg (5,000 Units) Tab) 125 mcg PO QAM MARIANA Stop: 08/01/24 09:14 Last Admin: 07/04/24 09:15 Dose: 125 mcg Mental Health & Subst Abuse Tx Psychiatrist Name of Psychiatrist: Pacheco Madsen Psychiatrist's Date Of Appointment With Psychiatric Provider: 07/23/24 Time of Appointment with Psychiatrist: 2:50PM Psychiatric Appointment Comment: Intake appt will take 1.5 hrs. Please bring insurance card to appt Therapist Name of Therapist: None [employer] Superintendent [employer] Schools Name of County Superintendent Of Schools: None Post Discharge Appointments Primary Care Physician Name Of Family Doctor/PCP: FEROZ
[2024-07-05] MEDS: KETOCONAZOLE 2% CR 15 GM TUBE EXT PRN (09:30)
--- NOTE | 2024-07-06 08:28 | Psychiatric Progress Note ---
Date of Service July 06, 2024 Impression / Recommendations Impression LIBBY GAN is a 24-year-old Malay Male, [employer] who currently lives alone, has a history of depression, and was admitted on 06/28/24 12:05 on a 302 involuntary commitment for psychosis. Patient presenting paranoia and persecutory delusions regarding fear of of himself and family after being triggered on [employer] online chat June 13. He presents a disorganized thought process, extreme anxiety, insomnia. Poor reality testing. Recently called police for assistance and did not let them inside his apartment due to excess fears. Presented to the hospital and then attempted to elope. Has required agitation and anxiety PRNs for behaviors. Concern for prodromal cognitive difficulties, perceptual changes, decline in academic performance, and social withdrawal seen in Schizophrenia. Possible past hypomanic/marky episodes however unclear. Does not appear to be substance induced. Diagnostically consistent with likely schizophrenia vs bipolar affective disorder mixed episode. A:Some lessening of paranoia today, more reality-based but very focused on discharge today. Agreeable to increasing Klonopin at HS to help with sleep. Overall, I spent a total of 30 minutes on this case including meeting with the patient, reviewing the chart, nursing report, multidisciplinary team meeting, orders, and documentation. (1) Unspecified psychosis not due to a substance or known physiological condition: (2) Schizophrenia: (3) Insomnia: (4) Persecutory delusion: (5) Acute paranoia: (6) Anxiety: Plan 07/06/2024: Increase Klonopin to 1.5mg HS. 07/05/2024: Continue current medications and tx plan. Olanzapine 2.5mg BID ODT prn for psychosis. 07/04/2024: Discontinue scheduled Cogentin. Start ketoconazole topical prn and triamcinolone acetonide topical prn. 07/03/2024: Continue current medications and tx plan. 07/02/24: D/C Lorazepam. Start Clonazepam 1mg HS. Start Vitamin D 5000u daily. 07/01/24: Continue medications and treatment plan. 06/30/24: D/C Risperidone. Start Olanzapine 5mg QAM, 15mg HS. Benztropine 1mg HS and PRN started. Start Propranolol 10mg TID. Vitals TID. 12/24/24:The patient was admitted to the [facility] on q15 min checks (behavioral with suicide precautions) for safety. The patient will participate in group, recreational, and milieu therapies and will be offered additional individual and family sessions as clinically appropriate. -Risperidone 1mg QAM, 2mg HS -Lorazepam 2mg HS -CK, fasting lipid panel, HbA1c, Vitamin D, Vitamin B12 labs Inventory Assets Strengths: independent, family support Needs: improved insight, improved reality testing Suicide Risk Level Suicide Risk Level: Moderate (q15 min suicide checks) (psychosis and hx of depression but denies any command AH, denies SI and feels safe in the hospital and feels able to ask for help. 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 Chief Complaint "Alright". Review of Systems Sleep Information Total Hours of Sleep: 6 Meal Information Percent Meal Consumed - Breakfast: 100 Percent Meal Consumed - Lunch: 100 Percent Meal Consumed - Dinner: 100 Subjective Subjective Patient was seen & assessed and interval progress reviewed with nursing and social work. More disorganized yesterday evening, having trouble answering questions, kept putting his lotion and toiletry items in his pockets. He tried to call his mother but she didn't answer which upset him. Only slept 6 hours overnight. Asks if he can discharge today or tomorrow. Feels groups and patient handbook and medications are helping. Reviewed that he'll have outpatient psych follow-up which he is glad about. He continues to ask and wonder about schizophrenia as a possible diagnosis. He is agreeable to titrating Klonopin at bedtime to further help with sleep. Physical Exam Psychiatric Orientation: alert, oriented x 3 and + guarded Apperance: appropriately dressed and appropriately groomed Eye Contact: + fair eye contact Motor Behavior: no abnormal motor movements Speech: + abnormal rate/rhythm/volume of speech (monotone) Affect: + flat affect Mood: + anxious mood Thought Process: + circumstantial thought process Thought Content: + preoccupation and + paranoid Suicidal Thoughts: denies suicidal thoughts Homicidal Thoughts: denies homicidal thoughts Hallucinations: no auditory hallucinations and no visual hallucinations Insight: + limited insight Judgment: + limited judgement Vital Signs (Past 24 Hours) Last Vital Signs Temp 36.6 C 07/06/24 06:39 Pulse 106 H 07/06/24 06:40 Resp 18 07/06/24 06:39 BP 141/93 H 07/06/24 06:40 Pulse Ox 100 07/05/24 20:44 O2 Del Method Room Air 07/05/24 20:44 Results & Data ([facility]) Current Inpatient Medications Current Inpatient Medications: Current Inpatient Medications Acetaminophen (Acetaminophen 325 Mg Tab) 650 mg PO Q4H PRN PRN Reason: Headache or Minor Fever Stop: 07/28/24 12:04 Al Hydrox/Mg Hydrox/Simethicone (Aluminum/Magnesium Susp 30 Ml Udc) 30 ml PO Q4H PRN PRN Reason: GI Upset Stop: 07/28/24 12:04 Benztropine Mesylate (Benztropine Mesylate 1 Mg Tab) 1 mg PO Q8H PRN PRN Reason: EPS Stop: 07/30/24 11:39 Last Admin: 06/30/24 12:43 Dose: 1 mg Benztropine Mesylate (Benztropine Mesylate 1 Mg/Ml 2 Ml Amp) 1 mg IM Q8H PRN PRN Reason: EPS Stop: 07/30/24 11:39 Bismuth Subsalicylate (Bismuth Subsalicylate 262 Mg Chew) 2 tab PO Q30M PRN PRN Reason: Loose Stool/Diarrhea Stop: 07/28/24 12:04 Clonazepam (Clonazepam 1 Mg Tab) 1 mg PO DAILY@1930 MARIANA Stop: 08/01/24 19:29 Last Admin: 07/05/24 18:47 Dose: 1 mg Hydroxyzine HCl (Hydroxyzine Hcl 25 Mg Tab) 50 mg PO HSZ PRN PRN Reason: Insomnia Stop: 07/28/24 12:04 Hydroxyzine HCl (Hydroxyzine Hcl 25 Mg Tab) 25 mg PO Q4H PRN PRN Reason: Anxiety Stop: 07/28/24 12:04 Last Admin: 06/30/24 15:20 Dose: 25 mg Ketoconazole (Ketoconazole 2% Cr 15 Gm Tube) 1 appln EXT DAILY PRN PRN Reason: scalp irritation/flaking Stop: 07/14/24 12:34 Last Admin: 07/05/24 22:31 Dose: 1 appln Lorazepam (Lorazepam 2 Mg/1 Ml Vial) 1 mg IM Q6H PRN PRN Reason: Anxiety Stop: 07/28/24 13:54 Lorazepam (Lorazepam 1 Mg Tab) 1 mg PO Q6H PRN PRN Reason: Anxiety Stop: 07/28/24 14:03 Last Admin: 07/05/24 11:03 Dose: 1 mg Magnesium Hydroxide (Magnesium Hydroxide Susp 30 Ml Udc) 30 ml PO DAILY PRN PRN Reason: Constipation Stop: 07/28/24 12:04 Olanzapine (Olanzapine 5 Mg Tablet) 15 mg PO HS [facility] Stop: 07/30/24 21:59 Last Admin: 07/05/24 22:15 Dose: 15 mg Olanzapine (Olanzapine 5 Mg Tablet) 5 mg PO QAM [facility] Stop: 07/31/24 08:59 Last Admin: 07/06/24 08:06 Dose: 5 mg Olanzapine (Olanzapine Zydis 5 Mg Orally Dis. Tab) 5 mg PO BID PRN PRN Reason: Agitation Stop: 07/30/24 20:59 Olanzapine (Olanzapine 2.5 Mg Tab) 2.5 mg PO BID PRN PRN Reason: psychosis Stop: 08/04/24 20:59 Propranolol HCl (Propranolol Hcl 10 Mg Tab) 10 mg PO TID [facility] Stop: 07/30/24 09:49 Last Admin: 07/06/24 08:06 Dose: 10 mg Sodium Chloride (Sodium Chloride 0.65% Na Soln 45 Ml ([place])) 1 - 2 sprays NA PRN PRN PRN Reason: Nasal Dryness/Congestion Stop: 07/28/24 12:04 Last Admin: 07/04/24 19:12 Dose: 2 sprays Triamcinolone Acetonide (Triamcinolone Acet 0.1% Cr 80 Gm Tube) 1 appln EXT DAILY PRN PRN Reason: facial redness/itching Stop: 08/03/24 12:34 Vitamin D (Cholecalciferol 125 Mcg (5,000 Units) Tab) 125 mcg PO QAM MARIANA Stop: 08/01/24 09:14 Last Admin: 07/06/24 08:05 Dose: 125 mcg Mental Health & Subst Abuse Tx Psychiatrist Name of Psychiatrist: Pacheco Madsen Psychiatrist's Date Of Appointment With Psychiatric Provider: 07/23/24 Time of Appointment with Psychiatrist: 2:50PM Psychiatric Appointment Comment: Intake appt will take 1.5 hrs. Please bring insurance card to appt Therapist Name of Therapist: None Psychology Lecturer Name of Psychology Lecturer: None Post Discharge Appointments Primary Care Physician Name Of Family Doctor/PCP: FEROZ
[2024-07-06] MEDS: OLANZAPINE 2.5 MG TAB PO PRN (11:39)
[2024-07-06] MEDS: clonazePAM 0.5 MG TAB PO ONE (22:45)
[2024-07-06] MEDS: TRIAMCINOLONE ACET 0.1% CR 80 GM TUBE EXT PRN (23:23)
--- NOTE | 2024-07-07 09:00 | Psychiatric Progress Note ---
Date of Service July 07, 2024 Impression / Recommendations Impression LIBBY GAN is a 24-year-old Central [place] Male, [employer] senior who currently lives alone, has a history of depression, and was admitted on 06/28/24 12:05 on a 302 involuntary commitment for psychosis. Patient presenting paranoia and persecutory delusions regarding fear of of himself and family after being triggered on [employer] online chat June 13. He presents a disorganized thought process, extreme anxiety, insomnia. Poor reality testing. Recently called police for assistance and did not let them inside his apartment due to excess fears. Presented to the hospital and then attempted to elope. Has required agitation and anxiety PRNs for behaviors. Concern for prodromal cognitive difficulties, perceptual changes, decline in academic performance, and social withdrawal seen in Schizophrenia. Possible past hypomanic/marky episodes however unclear. Does not appear to be substance induced. Diagnostically consistent with likely schizophrenia vs bipolar affective disorder mixed episode. A:Slept poorly, increased paranoia today. Reviewed option to increase olanzapine beyond FDA max as data that higher doses of olanzapine can offer increased symptom relief. He is interested in increasing the olanzapine to see if it will lessen his paranoia and unease related to sense that bad things are going to happen to his family. He is agreeable to having an EKG to ensure QTc remains stable on higher dose of olanzapine. Overall, I spent a total of 35 minutes on this case including meeting with the patient, reviewing the chart, nursing report, multidisciplinary team meeting, orders, and documentation. (1) Unspecified psychosis not due to a substance or known physiological condition: (2) Schizophrenia: (3) Insomnia: (4) Persecutory delusion: (5) Acute paranoia: (6) Anxiety: Plan 07/07/2024: Increase olanzapine to 5mg qAM and 25mg HS. EKG ordered for tomorrow to assess QTc. 07/06/2024: Increase Klonopin to 1.5mg HS. 07/05/2024: Continue current medications and tx plan. Olanzapine 2.5mg BID ODT prn for psychosis. 07/04/2024: Discontinue scheduled Cogentin. Start ketoconazole topical prn and triamcinolone acetonide topical prn. 07/03/2024: Continue current medications and tx plan. 07/02/24: D/C Lorazepam. Start Clonazepam 1mg HS. Start Vitamin D 5000u daily. 07/01/24: Continue medications and treatment plan. 06/30/24: D/C Risperidone. Start Olanzapine 5mg QAM, 15mg HS. Benztropine 1mg HS and PRN started. Start Propranolol 10mg TID. Vitals TID. 06/29/24:The patient was admitted to the [facility] ([facility]) on q15 min checks (behavioral with suicide precautions) for safety. The patient will participate in group, recreational, and milieu therapies and will be offered additional individual and family sessions as clinically appropriate. -Risperidone 1mg QAM, 2mg HS -Lorazepam 2mg HS -CK, fasting lipid panel, HbA1c, Vitamin D, Vitamin B12 labs Inventory Assets Strengths: independent, family support Needs: improved insight, improved reality testing Suicide Risk Level Suicide Risk Level: Moderate (q15 min suicide checks) (psychosis and hx of depression but denies any command AH, denies SI and feels safe in the hospital and feels able to ask for help. 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 Chief Complaint "Good because it's a new ". Review of Systems Sleep Information Total Hours of Sleep: 4 Meal Information Percent Meal Consumed - Breakfast: 100 Percent Meal Consumed - Lunch: 100 Percent Meal Consumed - Dinner: 100 Subjective Subjective Patient was seen & assessed and interval progress reviewed with nursing. Got prn olanzapine yesterday per his request. Only slept for 4 hours overnight, up early reporting he was excited for the . He requested a journal this morning. Today reports positive mood due to the and reflects that in [place] both the and are considered big celebrations. He is more paranoid today reflecting that he feels unease about his parents safety and asks at times to text them. However, he is also able to say that his mother is safe and he's relieved about this. He wonders about getting "brand name" medication instead of generics. Discussed potential significant rasheed difference and he asks to reflect on this overnight. Physical Exam Psychiatric Orientation: alert, oriented x 3 and + guarded Apperance: appropriately dressed and appropriately groomed Eye Contact: + fair eye contact Motor Behavior: no abnormal motor movements Speech: + abnormal rate/rhythm/volume of speech (monotone) Affect: + flat affect Mood: + anxious mood Thought Process: + circumstantial thought process Thought Content: + preoccupation and + paranoid Suicidal Thoughts: denies suicidal thoughts Homicidal Thoughts: denies homicidal thoughts Hallucinations: no auditory hallucinations and no visual hallucinations Insight: + limited insight Judgment: + limited judgement Vital Signs (Past 24 Hours) Last Vital Signs Temp 36.4 C 07/07/24 04:54 Pulse 107 H 07/07/24 04:54 Resp 16 07/07/24 04:54 BP 119/67 07/07/24 04:55 Pulse Ox 96 07/07/24 04:54 O2 Del Method Room Air 07/07/24 04:54 Results & Data ([facility]) Current Inpatient Medications Current Inpatient Medications: Current Inpatient Medications Acetaminophen (Acetaminophen 325 Mg Tab) 650 mg PO Q4H PRN PRN Reason: Headache or Minor Fever Stop: 07/28/24 12:04 Al Hydrox/Mg Hydrox/Simethicone (Aluminum/Magnesium Susp 30 Ml Udc) 30 ml PO Q4H PRN PRN Reason: GI Upset Stop: 07/28/24 12:04 Benztropine Mesylate (Benztropine Mesylate 1 Mg Tab) 1 mg PO Q8H PRN PRN Reason: EPS Stop: 07/30/24 11:39 Last Admin: 06/30/24 12:43 Dose: 1 mg Benztropine Mesylate (Benztropine Mesylate 1 Mg/Ml 2 Ml Amp) 1 mg IM Q8H PRN PRN Reason: EPS Stop: 07/30/24 11:39 Bismuth Subsalicylate (Bismuth Subsalicylate 262 Mg Chew) 2 tab PO Q30M PRN PRN Reason: Loose Stool/Diarrhea Stop: 07/28/24 12:04 Clonazepam (Clonazepam 0.5 Mg Tab) 1.5 mg PO DAILY@1930 [facility] Stop: 08/06/24 19:29 Hydroxyzine HCl (Hydroxyzine Hcl 25 Mg Tab) 50 mg PO HSZ PRN PRN Reason: Insomnia Stop: 07/28/24 12:04 Hydroxyzine HCl (Hydroxyzine Hcl 25 Mg Tab) 25 mg PO Q4H PRN PRN Reason: Anxiety Stop: 07/28/24 12:04 Last Admin: 06/30/24 15:20 Dose: 25 mg Ketoconazole (Ketoconazole 2% Cr 15 Gm Tube) 1 appln EXT DAILY PRN PRN Reason: scalp irritation/flaking Stop: 07/14/24 12:34 Last Admin: 07/06/24 15:37 Dose: 1 appln Lorazepam (Lorazepam 2 Mg/1 Ml Vial) 1 mg IM Q6H PRN PRN Reason: Anxiety Stop: 07/28/24 13:54 Lorazepam (Lorazepam 1 Mg Tab) 1 mg PO Q6H PRN PRN Reason: Anxiety Stop: 07/28/24 14:03 Last Admin: 07/05/24 11:03 Dose: 1 mg Magnesium Hydroxide (Magnesium Hydroxide Susp 30 Ml Udc) 30 ml PO DAILY PRN PRN Reason: Constipation Stop: 07/28/24 12:04 Olanzapine (Olanzapine 5 Mg Tablet) 15 mg PO HS MARIANA Stop: 07/30/24 21:59 Last Admin: 07/06/24 22:45 Dose: 15 mg Olanzapine (Olanzapine 5 Mg Tablet) 5 mg PO QAM MARIANA Stop: 07/31/24 08:59 Last Admin: 07/06/24 08:06 Dose: 5 mg Olanzapine (Olanzapine Zydis 5 Mg Orally Dis. Tab) 5 mg PO BID PRN PRN Reason: Agitation Stop: 07/30/24 20:59 Olanzapine (Olanzapine 2.5 Mg Tab) 2.5 mg PO BID PRN PRN Reason: psychosis Stop: 08/04/24 20:59 Last Admin: 07/06/24 11:39 Dose: 2.5 mg Propranolol HCl (Propranolol Hcl 10 Mg Tab) 10 mg PO TID MARIANA Stop: 07/30/24 09:49 Last Admin: 07/06/24 22:45 Dose: 10 mg Sodium Chloride (Sodium Chloride 0.65% Na Soln 45 Ml ([place])) 1 - 2 sprays NA PRN PRN PRN Reason: Nasal Dryness/Congestion Stop: 07/28/24 12:04 Last Admin: 07/04/24 19:12 Dose: 2 sprays Triamcinolone Acetonide (Triamcinolone Acet 0.1% Cr 80 Gm Tube) 1 appln EXT DAILY PRN PRN Reason: facial redness/itching Stop: 08/03/24 12:34 Last Admin: 07/06/24 23:23 Dose: 1 appln Vitamin D (Cholecalciferol 125 Mcg (5,000 Units) Tab) 125 mcg PO QAM MARIANA Stop: 08/01/24 09:14 Last Admin: 07/06/24 08:05 Dose: 125 mcg Mental Health & Subst Abuse Tx Psychiatrist Name of Psychiatrist: Pacheco Madsen Psychiatrist's Date Of Appointment With Psychiatric Provider: 07/23/24 Time of Appointment with Psychiatrist: 2:50PM Psychiatric Appointment Comment: Intake appt will take 1.5 hrs. Please bring insurance card to appt Therapist Name of Therapist: None Privacy Director Name of Privacy Director: None Post Discharge Appointments Primary Care Physician Name Of Family Doctor/PCP: FEROZ
[2024-07-07] MEDS: clonazePAM 0.5 MG TAB PO SCH (19:56)
[2024-07-07] MEDS: OLANZapine 5 MG TABLET PO SCH (21:21)
--- NOTE | 2024-07-08 09:14 | Psychiatric Progress Note ---
Date of Service July 08, 2024 Impression / Recommendations Impression LIBBY GAN is a 24-year-old [place] Male, [employer] senior who currently lives alone, has a history of depression, and was admitted on 06/28/24 12:05 on a 302 involuntary commitment for psychosis. Patient presenting paranoia and persecutory delusions regarding fear of of himself and family after being triggered on [employer] online chat June 13. He presents a disorganized thought process, extreme anxiety, insomnia. Poor reality testing. Recently called police for assistance and did not let them inside his apartment due to excess fears. Presented to the hospital and then attempted to elope. Has required agitation and anxiety PRNs for behaviors. Concern for prodromal cognitive difficulties, perceptual changes, decline in academic performance, and social withdrawal seen in Schizophrenia. Possible past hypomanic/marky episodes however unclear. Does not appear to be substance induced. Diagnostically consistent with likely schizophrenia vs bipolar affective disorder mixed episode. A:Improved sleep, lessening of paranoia but still requires repeated reassurances and worried at times today that he'd done something wrong. Tolerating higher dose of olanzapine with some lessening of his psychic distress. QTc on EKG is stable and remains <500ms. Will attempt support meeting tomorrow with his parents. Overall, I spent a total of 30 minutes on this case including meeting with the patient, reviewing the chart, nursing report, multidisciplinary team meeting, orders, and documentation. (1) Unspecified psychosis not due to a substance or known physiological condition: (2) Schizophrenia: (3) Insomnia: (4) Persecutory delusion: (5) Acute paranoia: (6) Anxiety: Plan 07/08/2024: Continue with current medications and tx plan. 07/07/2024: Increase olanzapine to 5mg qAM and 25mg HS. EKG ordered for tomorrow to assess QTc. 07/06/2024: Increase Klonopin to 1.5mg HS. 07/05/2024: Continue current medications and tx plan. Olanzapine 2.5mg BID ODT prn for psychosis. 07/04/2024: Discontinue scheduled Cogentin. Start ketoconazole topical prn and triamcinolone acetonide topical prn. 07/03/2024: Continue current medications and tx plan. 07/02/24: D/C Lorazepam. Start Clonazepam 1mg HS. Start Vitamin D 5000u daily. 07/01/24: Continue medications and treatment plan. 06/30/24: D/C Risperidone. Start Olanzapine 5mg QAM, 15mg HS. Benztropine 1mg HS and PRN started. Start Propranolol 10mg TID. Vitals TID. 06/29/24:The patient was [facility] to [facility] on q15 min checks (behavioral with suicide precautions) for safety. The patient will participate in group, recreational, and milieu therapies and will be offered additional individual and family sessions as clinically appropriate. -Risperidone 1mg QAM, 2mg HS -Lorazepam 2mg HS -CK, fasting lipid panel, HbA1c, Vitamin D, Vitamin B12 labs Inventory Assets Strengths: independent, family support Needs: improved insight, improved reality testing Suicide Risk Level Suicide Risk Level: Moderate (q15 min suicide checks) (psychosis and hx of depression but denies any command AH, denies SI and feels safe in the hospital and feels able to ask for help. ) Risk Factors Assessment Male: Yes : No Do You Have Access To A Gun?: No Health Problems: No Mental Health Diagnoses: Yes Substance Use Disorders: No Previous Attempt: No Family History of Suicide: No Previous Psychiatric Hospitalization: No Hopelessness: Yes Protective Factors Assessment Christianity Beliefs: Yes : No Responsible for Young Children: No Employed: No Stable Relationships: Yes Supportive Family: Yes Good Rapport with Provider: Yes Absence of Any Risk Factors Above: No Interval History Identifying Information LIBBY GAN is a 24-year-old man and international [employer] student from [place], who currently lives alone, has a history of depression, and was admitted on 06/28/24 12:05 on a 302 involuntary commitment for psychosis. Chief Complaint "I think I have obsession compulsion". Review of Systems Sleep Information Total Hours of Sleep: 8 Meal Information Percent Meal Consumed - Breakfast: 100 Percent Meal Consumed - Lunch: 100 Percent Meal Consumed - Dinner: 100 Subjective Subjective Patient was seen & assessed and interval progress reviewed with treatment team. Last evening again focused on need to check on his parents. Observed yelling on the phone, he reported it was due to argument with his parents. Slept 8 hours overnight. No excessive sedation this morning, up and interacting with peer. Today again focused on generic vs formulary medications and pharmacy options for outpatient scripts. Then reported he was "kidding" about this. Today reports "today I feel ok I think". Today reports lessening of "the unease, the insecurity" that makes him worry about his parents safety. Reflects that he feels he's dealing with some OCD symptoms. At times worried staff were upset with him. Able to reflect that this was due to his "psychosis". Tolerated EKG. Denies any side effects. Denies feeling that his appetite is increased. Wants to set goals to start exercising more. Physical Exam Psychiatric Orientation: alert, oriented x 3 and + guarded Apperance: appropriately dressed and appropriately groomed Eye Contact: + fair eye contact Motor Behavior: no abnormal motor movements Speech: + abnormal rate/rhythm/volume of speech (monotone) Affect: + flat affect Mood: + anxious mood Thought Process: + circumstantial thought process Thought Content: + preoccupation and + paranoid (but lessening) Suicidal Thoughts: denies suicidal thoughts Homicidal Thoughts: denies homicidal thoughts Hallucinations: no auditory hallucinations and no visual hallucinations Insight: + limited insight Judgment: + limited judgement Vital Signs (Past 24 Hours) Last Vital Signs Temp 36.5 C 07/08/24 06:43 Pulse 109 H 07/08/24 06:44 Resp 16 07/08/24 06:43 BP 110/77 07/08/24 06:44 Pulse Ox 97 07/07/24 21:17 O2 Del Method Room Air 07/07/24 21:17 Results & Data ([facility]) Current Inpatient Medications Current Inpatient Medications: Current Inpatient Medications Acetaminophen (Acetaminophen 325 Mg Tab) 650 mg PO Q4H PRN PRN Reason: Headache or Minor Fever Stop: 07/28/24 12:04 Al Hydrox/Mg Hydrox/Simethicone (Aluminum/Magnesium Susp 30 Ml Udc) 30 ml PO Q4H PRN PRN Reason: GI Upset Stop: 07/28/24 12:04 Benztropine Mesylate (Benztropine Mesylate 1 Mg Tab) 1 mg PO Q8H PRN PRN Reason: EPS Stop: 07/30/24 11:39 Last Admin: 06/30/24 12:43 Dose: 1 mg Benztropine Mesylate (Benztropine Mesylate 1 Mg/Ml 2 Ml Amp) 1 mg IM Q8H PRN PRN Reason: EPS Stop: 07/30/24 11:39 Bismuth Subsalicylate (Bismuth Subsalicylate 262 Mg Chew) 2 tab PO Q30M PRN PRN Reason: Loose Stool/Diarrhea Stop: 07/28/24 12:04 Clonazepam (Clonazepam 0.5 Mg Tab) 1.5 mg PO DAILY@1930 MARIANA Stop: 08/06/24 19:29 Last Admin: 07/07/24 19:56 Dose: 1.5 mg Hydroxyzine HCl (Hydroxyzine Hcl 25 Mg Tab) 50 mg PO HSZ PRN PRN Reason: Insomnia Stop: 07/28/24 12:04 Hydroxyzine HCl (Hydroxyzine Hcl 25 Mg Tab) 25 mg PO Q4H PRN PRN Reason: Anxiety Stop: 07/28/24 12:04 Last Admin: 06/30/24 15:20 Dose: 25 mg Ketoconazole (Ketoconazole 2% Cr 15 Gm Tube) 1 appln EXT DAILY PRN PRN Reason: scalp irritation/flaking Stop: 07/14/24 12:34 Last Admin: 07/06/24 15:37 Dose: 1 appln Lorazepam (Lorazepam 2 Mg/1 Ml Vial) 1 mg IM Q6H PRN PRN Reason: Anxiety Stop: 07/28/24 13:54 Lorazepam (Lorazepam 1 Mg Tab) 1 mg PO Q6H PRN PRN Reason: Anxiety Stop: 07/28/24 14:03 Last Admin: 07/05/24 11:03 Dose: 1 mg Magnesium Hydroxide (Magnesium Hydroxide Susp 30 Ml Udc) 30 ml PO DAILY PRN PRN Reason: Constipation Stop: 07/28/24 12:04 Olanzapine (Olanzapine 5 Mg Tablet) 5 mg PO QAM MARIANA Stop: 07/31/24 08:59 Last Admin: 07/08/24 07:57 Dose: 5 mg Olanzapine (Olanzapine Zydis 5 Mg Orally Dis. Tab) 5 mg PO BID PRN PRN Reason: Agitation Stop: 07/30/24 20:59 Olanzapine (Olanzapine 2.5 Mg Tab) 2.5 mg PO BID PRN PRN Reason: psychosis Stop: 08/04/24 20:59 Last Admin: 07/06/24 11:39 Dose: 2.5 mg Olanzapine (Olanzapine 5 Mg Tablet) 25 mg PO HS MARIANA Stop: 08/06/24 21:59 Last Admin: 07/07/24 21:21 Dose: 25 mg Propranolol HCl (Propranolol Hcl 10 Mg Tab) 10 mg PO TID MARIANA Stop: 07/30/24 09:49 Last Admin: 07/08/24 07:57 Dose: 10 mg Sodium Chloride (Sodium Chloride 0.65% Na Soln 45 Ml ([place])) 1 - 2 sprays NA PRN PRN PRN Reason: Nasal Dryness/Congestion Stop: 07/28/24 12:04 Last Admin: 07/04/24 19:12 Dose: 2 sprays Triamcinolone Acetonide (Triamcinolone Acet 0.1% Cr 80 Gm Tube) 1 appln EXT DAILY PRN PRN Reason: facial redness/itching Stop: 08/03/24 12:34 Last Admin: 07/07/24 19:10 Dose: 1 appln Vitamin D (Cholecalciferol 125 Mcg (5,000 Units) Tab) 125 mcg PO QAM MARIANA Stop: 08/01/24 09:14 Last Admin: 07/08/24 07:57 Dose: 125 mcg Mental Health & Subst Abuse Tx Psychiatrist Name of Psychiatrist: Pacheco Madsen Psychiatrist's Date Of Appointment With Psychiatric Provider: 07/23/24 Time of Appointment with Psychiatrist: 2:50PM Psychiatric Appointment Comment: Intake appt will take 1.5 hrs. Please bring insurance card to appt Therapist Name of Therapist: None Feather Maker Name of Feather Maker: None Post Discharge Appointments Primary Care Physician Name Of Family Doctor/PCP: FEROZ
--- NOTE | 2024-07-08 14:17 | Electrocardiogram Report ---
Test Reason : Blood Pressure : */* mmHG Vent. Rate : 87 BPM Atrial Rate : 87 BPM P-R Int : 154 ms QRS Dur : 88 ms QT Int : 324 ms P-R-T Axes : 71 100 50 degrees QTcB Int : 389 ms Normal sinus rhythm Rightward axis Borderline ECG No previous ECGs available Confirmed by Fidencio Carreno ([id number]) on 07/08/2024 2:16:34 PM Referred By: REFERRED SELF Confirmed By: Fidencio Carreno
--- NOTE | 2024-07-09 08:53 | Psychiatric Progress Note ---
Date of Service July 09, 2024 Impression / Recommendations Impression LIBBY GAN is a 24-year-old [place] Male, [employer] senior who currently lives alone, has a history of depression, and was admitted on 06/28/24 12:05 on a 302 involuntary commitment for psychosis. Patient presenting paranoia and persecutory delusions regarding fear of of himself and family after being triggered on [employer] online chat June 13. He presents a disorganized thought process, extreme anxiety, insomnia. Poor reality testing. Recently called police for assistance and did not let them inside his apartment due to excess fears. Presented to the hospital and then attempted to elope. Has required agitation and anxiety PRNs for behaviors. Concern for prodromal cognitive difficulties, perceptual changes, decline in academic performance, and social withdrawal seen in Schizophrenia. Possible past hypomanic/marky episodes however unclear. Does not appear to be substance induced. Diagnostically consistent with likely schizophrenia vs bipolar affective disorder mixed episode. A:Ongoing paranoia and delusions that he's done something wrong and people are thinking bad things about him. Tolerating higher dose of olanzapine and still without any excessive sedation, rather still with periods of poor sleep. He consents to ongoing titration to target ongoing symptoms of psychosis and insomnia. Seems paranoia is less on days he sleeps >7 hours. He understands dose remains above FDA maximum but data supports higher doses can offer increased efficacy and he wants to titrate further. Overall, I spent a total of 35 minutes on this case including meeting with the patient, reviewing the chart, nursing report, multidisciplinary team meeting, orders, and documentation. (1) Unspecified psychosis not due to a substance or known physiological condition: (2) Schizophrenia: (3) Insomnia: (4) Persecutory delusion: (5) Acute paranoia: (6) Anxiety: Plan 07/09/2024: -Increase olanzapine to: 5mg qAM and 30mg HS with 2.5mg BID prn for max total daily dose of 40mg 07/08/2024: Continue with current medications and tx plan. 07/07/2024: Increase olanzapine to 5mg qAM and 25mg HS. EKG ordered for tomorrow to assess QTc. 07/06/2024: Increase Klonopin to 1.5mg HS. 07/05/2024: Continue current medications and tx plan. Olanzapine 2.5mg BID ODT prn for psychosis. 07/04/2024: Discontinue scheduled Cogentin. Start ketoconazole topical prn and triamcinolone acetonide topical prn. 07/03/2024: Continue current medications and tx plan. 07/02/24: D/C Lorazepam. Start Clonazepam 1mg HS. Start Vitamin D 5000u daily. 07/01/24: Continue medications and treatment plan. 06/30/24: D/C Risperidone. Start Olanzapine 5mg QAM, 15mg HS. Benztropine 1mg HS and PRN started. Start Propranolol 10mg TID. Vitals TID. 06/29/24:The patient was admitted to the [facility] ([facility]) on q15 min checks (behavioral with suicide precautions) for safety. The patient will participate in group, recreational, and milieu therapies and will be offered additional individual and family sessions as clinically appropriate. -Risperidone 1mg QAM, 2mg HS -Lorazepam 2mg HS -CK, fasting lipid panel, HbA1c, Vitamin D, Vitamin B12 labs Inventory Assets Strengths: independent, family support Needs: improved insight, improved reality testing Suicide Risk Level Suicide Risk Level: Moderate (q15 min suicide checks) (psychosis and hx of depression but denies any command AH, denies SI and feels safe in the hospital and feels able to ask for help. ) Risk Factors Assessment Male: Yes : No Do You Have Access To A Gun?: No Health Problems: No Mental Health Diagnoses: Yes Substance Use Disorders: No Previous Attempt: No Family History of Suicide: No Previous Psychiatric Hospitalization: No Hopelessness: Yes Protective Factors Assessment Buddhist Beliefs: Yes : No Responsible for Young Children: No Employed: No Stable Relationships: Yes Supportive Family: Yes Good Rapport with Provider: Yes Absence of Any Risk Factors Above: No Interval History Identifying Information LIBBY GAN is a 24-year-old man and international [employer] student from [place], who currently lives alone, has a history of depression, and was admitted on 06/28/24 12:05 on a 302 involuntary commitment for psychosis. Chief Complaint "Tired because I woke up early". Review of Systems Sleep Information Total Hours of Sleep: 5.75 Meal Information Percent Meal Consumed - Breakfast: 100 Percent Meal Consumed - Lunch: 100 Percent Meal Consumed - Dinner: 100 Subjective Subjective Patient was seen & assessed and interval progress reviewed with treatment team. Interacting with peers, spending time in the group room. Woke up early, took a nap mid-day. Had support meeting over the phone and using ipad sugarcane research technician with his mother in [place]. Continues to make statements regarding his fear that he's done something wrong. Suspicion when food menu paperwork was slightly different this morning (missing watermark on the back). He agrees that "I focus on insignificant details, I worry too much". he does think his paranoia is lessening noting "it's improving". He denies any medication side effects. Some odd behaviors at times, spread hand customer engineer over his face during support meeting. Physical Exam Psychiatric Orientation: alert, oriented x 3 and + guarded Apperance: appropriately dressed and appropriately groomed Eye Contact: + fair eye contact Motor Behavior: no abnormal motor movements Speech: + abnormal rate/rhythm/volume of speech (monotone) Affect: + flat affect Mood: + anxious mood Thought Process: + circumstantial thought process Thought Content: + preoccupation, + paranoid (but lessening) and + delusions Suicidal Thoughts: denies suicidal thoughts Homicidal Thoughts: denies homicidal thoughts Hallucinations: no auditory hallucinations and no visual hallucinations Insight: + limited insight Judgment: + limited judgement Vital Signs (Past 24 Hours) Last Vital Signs Temp 36.4 C L 07/09/24 06:36 Pulse 125 H 07/09/24 06:36 Resp 18 07/09/24 06:36 BP 132/83 07/09/24 06:36 Pulse Ox 98 07/08/24 19:23 O2 Del Method Room Air 07/08/24 19:23 Results & Data ([email or web address] Current Inpatient Medications Current Inpatient Medications: Current Inpatient Medications Acetaminophen (Acetaminophen 325 Mg Tab) 650 mg PO Q4H PRN PRN Reason: Headache or Minor Fever Stop: 07/28/24 12:04 Al Hydrox/Mg Hydrox/Simethicone (Aluminum/Magnesium Susp 30 Ml Udc) 30 ml PO Q4H PRN PRN Reason: GI Upset Stop: 07/28/24 12:04 Benztropine Mesylate (Benztropine Mesylate 1 Mg Tab) 1 mg PO Q8H PRN PRN Reason: EPS Stop: 07/30/24 11:39 Last Admin: 06/30/24 12:43 Dose: 1 mg Benztropine Mesylate (Benztropine Mesylate 1 Mg/Ml 2 Ml Amp) 1 mg IM Q8H PRN PRN Reason: EPS Stop: 07/30/24 11:39 Bismuth Subsalicylate (Bismuth Subsalicylate 262 Mg Chew) 2 tab PO Q30M PRN PRN Reason: Loose Stool/Diarrhea Stop: 07/28/24 12:04 Clonazepam (Clonazepam 0.5 Mg Tab) 1.5 mg PO DAILY@1930 [facility] Stop: 08/06/24 19:29 Last Admin: 07/08/24 19:53 Dose: 1.5 mg Hydroxyzine HCl (Hydroxyzine Hcl 25 Mg Tab) 50 mg PO HSZ PRN PRN Reason: Insomnia Stop: 07/28/24 12:04 Hydroxyzine HCl (Hydroxyzine Hcl 25 Mg Tab) 25 mg PO Q4H PRN PRN Reason: Anxiety Stop: 07/28/24 12:04 Last Admin: 06/30/24 15:20 Dose: 25 mg Ketoconazole (Ketoconazole 2% Cr 15 Gm Tube) 1 appln EXT DAILY PRN PRN Reason: scalp irritation/flaking Stop: 07/14/24 12:34 Last Admin: 07/06/24 15:37 Dose: 1 appln Lorazepam (Lorazepam 2 Mg/1 Ml Vial) 1 mg IM Q6H PRN PRN Reason: Anxiety Stop: 07/28/24 13:54 Lorazepam (Lorazepam 1 Mg Tab) 1 mg PO Q6H PRN PRN Reason: Anxiety Stop: 07/28/24 14:03 Last Admin: 07/05/24 11:03 Dose: 1 mg Magnesium Hydroxide (Magnesium Hydroxide Susp 30 Ml Udc) 30 ml PO DAILY PRN PRN Reason: Constipation Stop: 07/28/24 12:04 Olanzapine (Olanzapine 5 Mg Tablet) 5 mg PO QAM MARIANA Stop: 07/31/24 08:59 Last Admin: 07/09/24 08:03 Dose: 5 mg Olanzapine (Olanzapine Zydis 5 Mg Orally Dis. Tab) 5 mg PO BID PRN PRN Reason: Agitation Stop: 07/30/24 20:59 Olanzapine (Olanzapine 2.5 Mg Tab) 2.5 mg PO BID PRN PRN Reason: psychosis Stop: 08/04/24 20:59 Last Admin: 07/06/24 11:39 Dose: 2.5 mg Olanzapine (Olanzapine 5 Mg Tablet) 25 mg PO HS MARIANA Stop: 08/06/24 21:59 Last Admin: 07/08/24 21:35 Dose: 25 mg Propranolol HCl (Propranolol Hcl 10 Mg Tab) 10 mg PO TID MARIANA Stop: 07/30/24 09:49 Last Admin: 07/09/24 08:03 Dose: 10 mg Sodium Chloride (Sodium Chloride 0.65% Na Soln 45 Ml ([place])) 1 - 2 sprays NA PRN PRN PRN Reason: Nasal Dryness/Congestion Stop: 07/28/24 12:04 Last Admin: 07/04/24 19:12 Dose: 2 sprays Triamcinolone Acetonide (Triamcinolone Acet 0.1% Cr 80 Gm Tube) 1 appln EXT DAILY PRN PRN Reason: facial redness/itching Stop: 08/03/24 12:34 Last Admin: 07/07/24 19:10 Dose: 1 appln Vitamin D (Cholecalciferol 125 Mcg (5,000 Units) Tab) 125 mcg PO QAM MARIANA Stop: 08/01/24 09:14 Last Admin: 07/09/24 08:03 Dose: 125 mcg Mental Health & Subst Abuse Tx Psychiatrist Name of Psychiatrist: Pacheco Madsen ([address], [facility]) Psychiatrist's Date Of Appointment With Psychiatric Provider: 07/23/24 Time of Appointment with Psychiatrist: 2:50PM Psychiatric Appointment Comment: Intake appt will take 1.5 hrs. Please bring insurance card to appt Therapist Name of Therapist: Pacheco [facility] - FEP program Therapist's Date of Therapist Appointment: 07/19/24 Time of Therapist Appointment: 11AM Therapy Appointment Comment: First Episode Psychosis Program. [address], [place] Wire Brusher Name of Wire Brusher: None Post Discharge Appointments Primary Care Physician Name Of Family Doctor/PCP: [facility] Contact Information Discharge Discharge Address: [address] [place] [address]
[2024-07-09] MEDS: OLANZapine 10 MG TAB PO SCH (22:23)
--- NOTE | 2024-07-10 09:35 | Psychiatric Progress Note ---
Date of Service July 10, 2024 Impression / Recommendations Impression LIBBY GAN is a 24-year-old Citizen Of [place] Male, [employer] who currently lives alone, has a history of depression, and was admitted on 06/28/24 12:05 on a 302 involuntary commitment for psychosis. Patient presenting paranoia and persecutory delusions regarding fear of of himself and family after being triggered on [employer] online chat June 13. He presents a disorganized thought process, extreme anxiety, insomnia. Poor reality testing. Recently called police for assistance and did not let them inside his apartment due to excess fears. Presented to the hospital and then attempted to elope. Has required agitation and anxiety PRNs for behaviors. Concern for prodromal cognitive difficulties, perceptual changes, decline in academic performance, and social withdrawal seen in Schizophrenia. Possible past hypomanic/marky episodes however unclear. Does not appear to be substance induced. Diagnostically consistent with likely schizophrenia vs bipolar affective disorder mixed episode. A: Less evidence for ruminations and delusions today. Mood improving. Tolerating higher dose of olanzapine. Given some periods of confusion/seeming difficulty with short-term memory and plan for returning to courses next week will attempt to taper Klonopin while observing closely to ensure no worsening of sleep, especially since higher dose of olanzapine should also help with sleep initiation and maintenance. Overall, I spent a total of 30 minutes on this case including meeting with the patient, reviewing the chart, nursing report, multidisciplinary team meeting, orders, and documentation. (1) Unspecified psychosis not due to a substance or known physiological condition: (2) Schizophrenia: (3) Insomnia: (4) Persecutory delusion: (5) Acute paranoia: (6) Anxiety: Plan 07/10/2024: -Decrease Klonopin to 1mg HS 07/09/2024: -Increase olanzapine to: 5mg qAM and 30mg HS with 2.5mg BID prn for max total daily dose of 40mg 07/08/2024: Continue with current medications and tx plan. 07/07/2024: Increase olanzapine to 5mg qAM and 25mg HS. EKG ordered for tomorrow to assess QTc. 07/06/2024: Increase Klonopin to 1.5mg HS. 07/05/2024: Continue current medications and tx plan. Olanzapine 2.5mg BID ODT prn for psychosis. 07/04/2024: Discontinue scheduled Cogentin. Start ketoconazole topical prn and triamcinolone acetonide topical prn. 07/03/2024: Continue current medications and tx plan. 07/02/24: D/C Lorazepam. Start Clonazepam 1mg HS. Start Vitamin D 5000u daily. 07/01/24: Continue medications and treatment plan. 06/30/24: D/C Risperidone. Start Olanzapine 5mg QAM, 15mg HS. Benztropine 1mg HS and PRN started. Start Propranolol 10mg TID. Vitals TID. 06/29/24:The patient was admitted to the [facility] on q15 min checks (behavioral with suicide precautions) for safety. The patient will participate in group, recreational, and milieu therapies and will be offered additional individual and family sessions as clinically appropriate. -Risperidone 1mg QAM, 2mg HS -Lorazepam 2mg HS -CK, fasting lipid panel, HbA1c, Vitamin D, Vitamin B12 labs Inventory Assets Strengths: independent, family support Needs: improved insight, improved reality testing Suicide Risk Level Suicide Risk Level: Moderate (q15 min suicide checks) (psychosis and hx of depression but denies any command AH, denies SI and feels safe in the hospital and feels able to ask for help. 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 Chief Complaint "I feel good". Review of Systems Sleep Information Total Hours of Sleep: 6.75 Meal Information Percent Meal Consumed - Breakfast: 100 Percent Meal Consumed - Lunch: 100 Percent Meal Consumed - Dinner: 100 Subjective Subjective Patient was seen & assessed and interval progress reviewed with nursing. Often asks the same question multiple times. Last evening wanted to call his mother to tell her that he was ok because he knows she tried to have an when she was . Continues to have intermittent bloody nose at times, encouraging use of saline nasal spray which seems to be effective. He reports frequent nose bleeds at baseline. Today reports his mood is good and he feels he slept well. States he feels that 7.5 hours is the perfect amount of sleep for him. He denies any urinary symptoms today, despite increased dose of olanzapine last evening. Rather today he attributes his urinary hesitancy to stress stating "I think when I'm stressed I can't relax those muscles fully". Reflects on his hopefulness to graduate at the end of the semester. Physical Exam Psychiatric Orientation: alert, oriented x 3 and + guarded Apperance: appropriately dressed and appropriately groomed Eye Contact: good eye contact Motor Behavior: no abnormal motor movements Speech: normal rate/rhythm/volume of speech Affect: + flat affect Mood: + anxious mood Thought Process: + circumstantial thought process Thought Content: + preoccupation and + delusions Suicidal Thoughts: denies suicidal thoughts Homicidal Thoughts: denies homicidal thoughts Hallucinations: no auditory hallucinations and no visual hallucinations Insight: + fair insight Judgment: + limited judgement Vital Signs (Past 24 Hours) Last Vital Signs Temp 36.1 C L 07/10/24 06:00 Pulse 92 H 07/10/24 06:00 Resp 16 07/10/24 06:00 BP 123/82 07/10/24 06:00 Pulse Ox 97 07/10/24 06:00 O2 Del Method Room Air 07/10/24 06:00 Results & Data ([facility]) Current Inpatient Medications Current Inpatient Medications: Current Inpatient Medications Acetaminophen (Acetaminophen 325 Mg Tab) 650 mg PO Q4H PRN PRN Reason: Headache or Minor Fever Stop: 07/28/24 12:04 Al Hydrox/Mg Hydrox/Simethicone (Aluminum/Magnesium Susp 30 Ml Udc) 30 ml PO Q4H PRN PRN Reason: GI Upset Stop: 07/28/24 12:04 Benztropine Mesylate (Benztropine Mesylate 1 Mg Tab) 1 mg PO Q8H PRN PRN Reason: EPS Stop: 07/30/24 11:39 Last Admin: 06/30/24 12:43 Dose: 1 mg Benztropine Mesylate (Benztropine Mesylate 1 Mg/Ml 2 Ml Amp) 1 mg IM Q8H PRN PRN Reason: EPS Stop: 07/30/24 11:39 Bismuth Subsalicylate (Bismuth Subsalicylate 262 Mg Chew) 2 tab PO Q30M PRN PRN Reason: Loose Stool/Diarrhea Stop: 07/28/24 12:04 Clonazepam (Clonazepam 0.5 Mg Tab) 1.5 mg PO DAILY@1930 MARIANA Stop: 08/06/24 19:29 Last Admin: 07/09/24 19:26 Dose: 1.5 mg Hydroxyzine HCl (Hydroxyzine Hcl 25 Mg Tab) 50 mg PO HSZ PRN PRN Reason: Insomnia Stop: 07/28/24 12:04 Hydroxyzine HCl (Hydroxyzine Hcl 25 Mg Tab) 25 mg PO Q4H PRN PRN Reason: Anxiety Stop: 07/28/24 12:04 Last Admin: 06/30/24 15:20 Dose: 25 mg Ketoconazole (Ketoconazole 2% Cr 15 Gm Tube) 1 appln EXT DAILY PRN PRN Reason: scalp irritation/flaking Stop: 07/14/24 12:34 Last Admin: 07/06/24 15:37 Dose: 1 appln Lorazepam (Lorazepam 2 Mg/1 Ml Vial) 1 mg IM Q6H PRN PRN Reason: Anxiety Stop: 07/28/24 13:54 Lorazepam (Lorazepam 1 Mg Tab) 1 mg PO Q6H PRN PRN Reason: Anxiety Stop: 07/28/24 14:03 Last Admin: 07/05/24 11:03 Dose: 1 mg Magnesium Hydroxide (Magnesium Hydroxide Susp 30 Ml Udc) 30 ml PO DAILY PRN PRN Reason: Constipation Stop: 07/28/24 12:04 Olanzapine (Olanzapine 5 Mg Tablet) 5 mg PO QAM MARIANA Stop: 07/31/24 08:59 Last Admin: 07/10/24 08:53 Dose: 5 mg Olanzapine (Olanzapine 2.5 Mg Tab) 2.5 mg PO BID PRN PRN Reason: psychosis Stop: 08/04/24 20:59 Last Admin: 07/06/24 11:39 Dose: 2.5 mg Olanzapine (Olanzapine 10 Mg Tab) 30 mg PO HS MARIANA Stop: 08/08/24 21:59 Last Admin: 07/09/24 22:23 Dose: 30 mg Propranolol HCl (Propranolol Hcl 10 Mg Tab) 10 mg PO TID MARIANA Stop: 07/30/24 09:49 Last Admin: 07/10/24 08:53 Dose: 10 mg Sodium Chloride (Sodium Chloride 0.65% Na Soln 45 Ml ([place])) 1 - 2 sprays NA PRN PRN PRN Reason: Nasal Dryness/Congestion Stop: 07/28/24 12:04 Last Admin: 07/04/24 19:12 Dose: 2 sprays Triamcinolone Acetonide (Triamcinolone Acet 0.1% Cr 80 Gm Tube) 1 appln EXT DAILY PRN PRN Reason: facial redness/itching Stop: 08/03/24 12:34 Last Admin: 07/07/24 19:10 Dose: 1 appln Vitamin D (Cholecalciferol 125 Mcg (5,000 Units) Tab) 125 mcg PO QAM MARIANA Stop: 08/01/24 09:14 Last Admin: 07/10/24 08:53 Dose: 125 mcg Mental Health & Subst Abuse Tx Psychiatrist Name of Psychiatrist: Pacheco Madsen ([address] [facility] [address], [facility]) Psychiatrist's Date Of Appointment With Psychiatric Provider: 07/23/24 Time of Appointment with Psychiatrist: 2:50PM Psychiatric Appointment Comment: Intake appt will take 1.5 hrs. Please bring i nsurance card to appt Therapist Name of Therapist: [facility] - FEP program Therapist's Date of Therapist Appointment: 07/19/24 Time of Therapist Appointment: 11AM Therapy Appointment Comment: First Episode Psychosis Program. [address] [facility] [address], [place] Plant Scientist Name of Plant Scientist: None Post Discharge Appointments Primary Care Physician Name Of Family Doctor/PCP: [facility] Contact Information Discharge Discharge Address: [address] [place] [id number]
[2024-07-10] MEDS: clonazePAM 1 MG TAB PO SCH (20:51)
--- NOTE | 2024-07-11 09:18 | Psychiatric Progress Note ---
Date of Service July 11, 2024 Impression / Recommendations Impression LIBBY GAN is a 24-year-old [place] Male, [employer] senior who currently lives alone, has a history of depression, and was admitted on 06/28/24 12:05 on a 302 involuntary commitment for psychosis. Patient presenting paranoia and persecutory delusions regarding fear of of himself and family after being triggered on [employer] online chat June 13. He presents a disorganized thought process, extreme anxiety, insomnia. Poor reality testing. Recently called police for assistance and did not let them inside his apartment due to excess fears. Presented to the hospital and then attempted to elope. Has required agitation and anxiety PRNs for behaviors. Concern for prodromal cognitive difficulties, perceptual changes, decline in academic performance, and social withdrawal seen in Schizophrenia. Possible past hypomanic/marky episodes however unclear. Does not appear to be substance induced. Diagnostically consistent with likely schizophrenia vs bipolar affective disorder mixed episode. A: Continuing to show progress, less ruminations today and reports his mood continues to improve. Slept well last night even with lower dose of Klonopin. Higher dose of olanzapine seems to be offering increased benefit and no evidence for new side effects except ongoing potential anticholinergic effect on bladder function. However, he reports this symptom was present prior to hospitalization. No indication for UTI and given ongoing symptoms and distress from this will start trial of flomax which he consents to. Overall, I spent a total of 35 minutes on this case including meeting with the patient, reviewing the chart, nursing report, multidisciplinary team meeting, orders, and documentation. (1) Unspecified psychosis not due to a substance or known physiological condition: (2) Schizophrenia: (3) Insomnia: (4) Persecutory delusion: (5) Acute paranoia: (6) Anxiety: Plan 07/11/2024: -Decrease Klonopin to 0.5mg HS -Start flomax 0.4mg qd 07/10/2024: -Decrease Klonopin to 1mg HS 07/09/2024: -Increase olanzapine to: 5mg qAM and 30mg HS with 2.5mg BID prn for max total daily dose of 40mg 07/08/2024: Continue with current medications and tx plan. 07/07/2024: Increase olanzapine to 5mg qAM and 25mg HS. EKG ordered for tomorrow to assess QTc. 07/06/2024: Increase Klonopin to 1.5mg HS. 07/05/2024: Continue current medications and tx plan. Olanzapine 2.5mg BID ODT prn for psychosis. 07/04/2024: Discontinue scheduled Cogentin. Start ketoconazole topical prn and triamcinolone acetonide topical prn. 07/03/2024: Continue current medications and tx plan. 07/02/24: D/C Lorazepam. Start Clonazepam 1mg HS. Start Vitamin D 5000u daily. 07/01/24: Continue medications and treatment plan. 06/30/24: D/C Risperidone. Start Olanzapine 5mg QAM, 15mg HS. Benztropine 1mg HS and PRN started. Start Propranolol 10mg TID. Vitals TID. 06/29/24:The patient was admitted to the [facility] ([facility]) on q15 min checks (behavioral with suicide precautions) for safety. The patient will participate in group, recreational, and milieu therapies and will be offered additional individual and family sessions as clinically appropriate. -Risperidone 1mg QAM, 2mg HS -Lorazepam 2mg HS -CK, fasting lipid panel, HbA1c, Vitamin D, Vitamin B12 labs Inventory Assets Strengths: independent, family support Needs: improved insight, improved reality testing Suicide Risk Level Suicide Risk Level: Moderate (q15 min suicide checks) (psychosis and hx of depression but denies any command AH, denies SI, mood improving and feels safe in the hospital and feels able to ask for help. 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 Chief Complaint "I feel good". Review of Systems Sleep Information Total Hours of Sleep: 7.5 Meal Information Percent Meal Consumed - Breakfast: 100 Percent Meal Consumed - Lunch: 100 Percent Meal Consumed - Dinner: 100 Subjective Subjective Patient was seen & assessed and interval progress reviewed with nursing. Did well last evening, more on topic in the groups, interacting well with peers. Rated his mood as "peaceful" last evening. Slept well. Today reports his mood is good and he's finding use of essential oils helpful for his stress. He feels his stress levels are "much much less". He's having sense of needing to strain vs difficulty relaxing his muscles to urinate again today and requests a medication to help with this. Reviewed this can be a side effect of olanzapine but he also feels he was dealing with this prior to hospitalization and prior to ever starting an antipsychotic or anticholinergic medications. He notes mood improvement in terms of "I'm finding interest in things again like coloring and doodling". He's agreeable with ongoing attempt to taper Klonopin to reduce risk of memory issues as he starts the academic semester. Physical Exam Psychiatric Orientation: alert and oriented x 3 Apperance: appropriately dressed and appropriately groomed Eye Contact: good eye contact Motor Behavior: no abnormal motor movements Speech: normal rate/rhythm/volume of speech Affect: + constricted affect Mood: + anxious mood Thought Process: goal directed thought process Thought Content: + preoccupation Suicidal Thoughts: denies suicidal thoughts Homicidal Thoughts: denies homicidal thoughts Hallucinations: no auditory hallucinations and no visual hallucinations Insight: + fair insight Judgment: + fair judgement Vital Signs (Past 24 Hours) Last Vital Signs Temp 36.9 C 07/11/24 06:00 Pulse 99 H 07/11/24 06:00 Resp 16 07/11/24 06:00 BP 121/89 07/11/24 06:00 Pulse Ox 100 07/11/24 06:00 O2 Del Method Room Air 07/11/24 06:00 Results & Data ([facility]) Current Inpatient Medications Current Inpatient Medications: Current Inpatient Medications Acetaminophen (Acetaminophen 325 Mg Tab) 650 mg PO Q4H PRN PRN Reason: Headache or Minor Fever Stop: 07/28/24 12:04 Al Hydrox/Mg Hydrox/Simethicone (Aluminum/Magnesium Susp 30 Ml Udc) 30 ml PO Q4H PRN PRN Reason: GI Upset Stop: 07/28/24 12:04 Benztropine Mesylate (Benztropine Mesylate 1 Mg Tab) 1 mg PO Q8H PRN PRN Reason: EPS Stop: 07/30/24 11:39 Last Admin: 06/30/24 12:43 Dose: 1 mg Benztropine Mesylate (Benztropine Mesylate 1 Mg/Ml 2 Ml Amp) 1 mg IM Q8H PRN PRN Reason: EPS Stop: 07/30/24 11:39 Bismuth Subsalicylate (Bismuth Subsalicylate 262 Mg Chew) 2 tab PO Q30M PRN PRN Reason: Loose Stool/Diarrhea Stop: 07/28/24 12:04 Clonazepam (Clonazepam 1 Mg Tab) 1 mg PO DAILY@1930 [facility] Stop: 08/09/24 19:29 Last Admin: 07/10/24 20:51 Dose: 1 mg Hydroxyzine HCl (Hydroxyzine Hcl 25 Mg Tab) 50 mg PO HSZ PRN PRN Reason: Insomnia Stop: 07/28/24 12:04 Hydroxyzine HCl (Hydroxyzine Hcl 25 Mg Tab) 25 mg PO Q4H PRN PRN Reason: Anxiety Stop: 07/28/24 12:04 Last Admin: 06/30/24 15:20 Dose: 25 mg Ketoconazole (Ketoconazole 2% Cr 15 Gm Tube) 1 appln EXT DAILY PRN PRN Reason: scalp irritation/flaking Stop: 07/14/24 12:34 Last Admin: 07/06/24 15:37 Dose: 1 appln Lorazepam (Lorazepam 2 Mg/1 Ml Vial) 1 mg IM Q6H PRN PRN Reason: Anxiety Stop: 07/28/24 13:54 Lorazepam (Lorazepam 1 Mg Tab) 1 mg PO Q6H PRN PRN Reason: Anxiety Stop: 07/28/24 14:03 Last Admin: 07/05/24 11:03 Dose: 1 mg Magnesium Hydroxide (Magnesium Hydroxide Susp 30 Ml Udc) 30 ml PO DAILY PRN PRN Reason: Constipation Stop: 07/28/24 12:04 Olanzapine (Olanzapine 5 Mg Tablet) 5 mg PO QAM MARIANA Stop: 07/31/24 08:59 Last Admin: 07/11/24 08:57 Dose: 5 mg Olanzapine (Olanzapine 2.5 Mg Tab) 2.5 mg PO BID PRN PRN Reason: psychosis Stop: 08/04/24 20:59 Last Admin: 07/06/24 11:39 Dose: 2.5 mg Olanzapine (Olanzapine 10 Mg Tab) 30 mg PO HS MARIANA Stop: 08/08/24 21:59 Last Admin: 07/10/24 21:27 Dose: 30 mg Propranolol HCl (Propranolol Hcl 10 Mg Tab) 10 mg PO TID MARIANA Stop: 07/30/24 09:49 Last Admin: 07/11/24 08:57 Dose: 10 mg Sodium Chloride (Sodium Chloride 0.65% Na Soln 45 Ml ([place])) 1 - 2 sprays NA PRN PRN PRN Reason: Nasal Dryness/Congestion Stop: 07/28/24 12:04 Last Admin: 07/04/24 19:12 Dose: 2 sprays Triamcinolone Acetonide (Triamcinolone Acet 0.1% Cr 80 Gm Tube) 1 appln EXT DAILY PRN PRN Reason: facial redness/itching Stop: 08/03/24 12:34 Last Admin: 07/07/24 19:10 Dose: 1 appln Vitamin D (Cholecalciferol 125 Mcg (5,000 Units) Tab) 125 mcg PO QAM MARIANA Stop: 08/01/24 09:14 Last Admin: 07/11/24 08:57 Dose: 125 mcg Mental Health & Subst Abuse Tx Psychiatrist Name of Psychiatrist: Pacheco Madsen ([address] [facility] [address], [facility]) Psychiatrist's Date Of Appointment With Psychiatric Provider: 07/23/24 Time of Appointment with Psychiatrist: 2:50PM Psychiatric Appointment Comment: Intake appt will take 1.5 hrs. Please bring insurance card to appt Therapist Name of Therapist: [facility] - FEP program Therapist's Date of Therapist Appointment: 07/19/24 Time of Therapist Appointment: 11AM Therapy Appointment Comment: First Episode Psychosis Program. [address] [facility] [address], [place] Atmospheric Physics Professor Name of Atmospheric Physics Professor: None Post Discharge Appointments Primary Care Physician Name Of Family Doctor/PCP: [facility] Contact Information Discharge Discharge Address: [address] [place] [address]
[2024-07-11] MEDS: TAMSULOSIN HCL 0.4 MG CAP PO SCH (12:58)
[2024-07-11] MEDS: clonazePAM 0.5 MG TAB PO SCH (19:12)
--- NOTE | 2024-07-12 09:00 | Psychiatric Progress Note ---
Date of Service July 12, 2024 Impression / Recommendations Impression LIBBY GAN is a 24-year-old [place]ian Male, [employer] who currently lives alone, has a history of depression, and was admitted on 06/28/24 12:05 on a 302 involuntary commitment for psychosis. Patient presenting paranoia and persecutory delusions regarding fear of of himself and family after being triggered on discChangba online chat June 13. He presents a disorganized thought process, extreme anxiety, insomnia. Poor reality testing. Recently called police for assistance and did not let them inside his apartment due to excess fears. Presented to the hospital and then attempted to elope. Has required agitation and anxiety PRNs for behaviors. Concern for prodromal cognitive difficulties, perceptual changes, decline in academic performance, and social withdrawal seen in Schizophrenia. Possible past hypomanic/marky episodes however unclear. Does not appear to be substance induced. Diagnostically consistent with likely schizophrenia vs bipolar affective disorder mixed episode. A: Poor sleep last night but no worsening of psychosis and thought process was organized. He is future focused about returning to campus and getting back to his final two classes this spring. Denies any medication side effects, Flomax seems to be helping. Will increase Klonopin back to 1mg HS to help with sleep promotion. Overall, I spent a total of 30 minutes on this case including meeting with the patient, reviewing the chart, nursing report, multidisciplinary team meeting, orders, and documentation. (1) Unspecified psychosis not due to a substance or known physiological condition: (2) Schizophrenia: (3) Insomnia: (4) Persecutory delusion: (5) Acute paranoia: (6) Anxiety: Plan 07/12/2024: -Increase Klonopin to 1mg HS 07/11/2024: -Decrease Klonopin to 0.5mg HS -Start flomax 0.4mg qd 07/10/2024: -Decrease Klonopin to 1mg HS 07/09/2024: -Increase olanzapine to: 5mg qAM and 30mg HS with 2.5mg BID prn for max total daily dose of 40mg 07/08/2024: Continue with current medications and tx plan. 07/07/2024: Increase olanzapine to 5mg qAM and 25mg HS. EKG ordered for tomorrow to assess QTc. 07/06/2024: Increase Klonopin to 1.5mg HS. 07/05/2024: Continue current medications and tx plan. Olanzapine 2.5mg BID ODT prn for psychosis. 07/04/2024: Discontinue scheduled Cogentin. Start ketoconazole topical prn and triamcinolone acetonide topical prn. 07/03/2024: Continue current medications and tx plan. 07/02/24: D/C Lorazepam. Start Clonazepam 1mg HS. Start Vitamin D 5000u daily. 07/01/24: Continue medications and treatment plan. 06/30/24: D/C Risperidone. Start Olanzapine 5mg QAM, 15mg HS. Benztropine 1mg HS and PRN started. Start Propranolol 10mg TID. Vitals TID. 06/29/24:The patient was admitted to the [facility] ([facility] mental health unit) on q15 min checks (behavioral with suicide precautions) for safety. The patient will participate in group, recreational, and milieu therapies and will be offered additional individual and family sessions as clinically appropriate. -Risperidone 1mg QAM, 2mg HS -Lorazepam 2mg HS -CK, fasting lipid panel, HbA1c, Vitamin D, Vitamin B12 labs Inventory Assets Strengths: independent, family support Needs: improved insight, improved reality testing Suicide Risk Level Suicide Risk Level: Low (q15 min observation checks) (denies SI, positive mood, psychosis has improved, and feels safe in the hospital and feels able to ask for help. 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 Chief Complaint "I didn't sleep well". Review of Systems Sleep Information Total Hours of Sleep: 2 Meal Information Percent Meal Consumed - Breakfast: 100 Percent Meal Consumed - Lunch: 100 Percent Meal Consumed - Dinner: 100 Subjective Subjective Patient was seen & assessed and interval progress reviewed with treatment team. Last night reported his mood was "peaceful". Slept very poorly with lower dose. Up drinking a lot of water all night. Worried about a friend who is moving. today reports poor sleep last night but he isn't sure, why attributes it to sometimes random pattern of sleep difficulty. Not fatigued today but also no excessive energy. Feels his stress is "very low". Looking forward to discharge soon to return to classes and getting ready for his final semester. Notes "I'm so close to an important milestone" and is looking forward to this. Feels the flomax has been very helpful noting "my urination has improved a lot". He's agre eable to increasing Klonopin again to ensure stable sleep. Physical Exam Psychiatric Orientation: alert and oriented x 3 Apperance: appropriately dressed and appropriately groomed Eye Contact: good eye contact Motor Behavior: no abnormal motor movements Speech: normal rate/rhythm/volume of speech Affect: + constricted affect Mood: no depressed mood and no anxious mood Thought Process: goal directed thought process Thought Content: reality based without delusions Suicidal Thoughts: denies suicidal thoughts Homicidal Thoughts: denies homicidal thoughts Hallucinations: no auditory hallucinations and no visual hallucinations Insight: + fair insight Judgment: + fair judgement Vital Signs (Past 24 Hours) Last Vital Signs Temp 36.5 C 07/12/24 06:43 Pulse 93 H 07/12/24 08:24 Resp 18 07/12/24 06:43 BP 116/85 07/12/24 08:24 Pulse Ox 100 07/11/24 06:00 O2 Del Method Room Air 07/11/24 06:00 Results & Data ([facility]) Current Inpatient Medications Current Inpatient Medications: Current Inpatient Medications Acetaminophen (Acetaminophen 325 Mg Tab) 650 mg PO Q4H PRN PRN Reason: Headache or Minor Fever Stop: 07/28/24 12:04 Al Hydrox/Mg Hydrox/Simethicone (Aluminum/Magnesium Susp 30 Ml Udc) 30 ml PO Q4H PRN PRN Reason: GI Upset Stop: 07/28/24 12:04 Benztropine Mesylate (Benztropine Mesylate 1 Mg Tab) 1 mg PO Q8H PRN PRN Reason: EPS Stop: 07/30/24 11:39 Last Admin: 06/30/24 12:43 Dose: 1 mg Benztropine Mesylate (Benztropine Mesylate 1 Mg/Ml 2 Ml Amp) 1 mg IM Q8H PRN PRN Reason: EPS Stop: 07/30/24 11:39 Bismuth Subsalicylate (Bismuth Subsalicylate 262 Mg Chew) 2 tab PO Q30M PRN PRN Reason: Loose Stool/Diarrhea Stop: 07/28/24 12:04 Clonazepam (Clonazepam 0.5 Mg Tab) 0.5 mg PO DAILY@1930 [facility] Stop: 08/10/24 19:29 Last Admin: 07/11/24 19:12 Dose: 0.5 mg Hydroxyzine HCl (Hydroxyzine Hcl 25 Mg Tab) 50 mg PO HSZ PRN PRN Reason: Insomnia Stop: 07/28/24 12:04 Hydroxyzine HCl (Hydroxyzine Hcl 25 Mg Tab) 25 mg PO Q4H PRN PRN Reason: Anxiety Stop: 07/28/24 12:04 Last Admin: 06/30/24 15:20 Dose: 25 mg Ketoconazole (Ketoconazole 2% Cr 15 Gm Tube) 1 appln EXT DAILY PRN PRN Reason: scalp irritation/flaking Stop: 07/14/24 12:34 Last Admin: 07/06/24 15:37 Dose: 1 appln Lorazepam (Lorazepam 2 Mg/1 Ml Vial) 1 mg IM Q6H PRN PRN Reason: Anxiety Stop: 07/28/24 13:54 Lorazepam (Lorazepam 1 Mg Tab) 1 mg PO Q6H PRN PRN Reason: Anxiety Stop: 07/28/24 14:03 Last Admin: 07/05/24 11:03 Dose: 1 mg Magnesium Hydroxide (Magnesium Hydroxide Susp 30 Ml Udc) 30 ml PO DAILY PRN PRN Reason: Constipation Stop: 07/28/24 12:04 Olanzapine (Olanzapine 5 Mg Tablet) 5 mg PO QAM [facility] Stop: 07/31/24 08:59 Last Admin: 07/12/24 08:45 Dose: 5 mg Olanzapine (Olanzapine 2.5 Mg Tab) 2.5 mg PO BID PRN PRN Reason: psychosis Stop: 08/04/24 20:59 Last Admin: 07/06/24 11:39 Dose: 2.5 mg Olanzapine (Olanzapine 10 Mg Tab) 30 mg PO HS MARIANA Stop: 08/08/24 21:59 Last Admin: 07/11/24 21:15 Dose: 30 mg Propranolol HCl (Propranolol Hcl 10 Mg Tab) 10 mg PO TID MARIANA Stop: 07/30/24 09:49 Last Admin: 07/12/24 08:45 Dose: 10 mg Sodium Chloride (Sodium Chloride 0.65% Na Soln 45 Ml ([place])) 1 - 2 sprays NA PRN PRN PRN Reason: Nasal Dryness/Congestion Stop: 07/28/24 12:04 Last Admin: 07/04/24 19:12 Dose: 2 sprays Tamsulosin HCl (Tamsulosin Hcl 0.4 Mg Cap) 0.4 mg PO QAM [facility]IANA Stop: 08/10/24 12:14 Last Admin: 07/12/24 08:44 Dose: 0.4 mg Triamcinolone Acetonide (Triamcinolone Acet 0.1% Cr 80 Gm Tube) 1 appln EXT DAILY PRN PRN Reason: facial redness/itching Stop: 08/03/24 12:34 Last Admin: 07/07/24 19:10 Dose: 1 appln Vitamin D (Cholecalciferol 125 Mcg (5,000 Units) Tab) 125 mcg PO QAM [facility]IANA Stop: 08/01/24 09:14 Last Admin: 07/12/24 08:44 Dose: 125 mcg Mental Health & Subst Abuse Tx Psychiatrist Name of Psychiatrist: Pacheco Madsen ([address] [address], [facility]) Psychiatrist's Date Of Appointment With Psychiatric Provider: 07/23/24 Time of Appointment with Psychiatrist: 2:50PM Psychiatric Appointment Comment: Intake appt will take 1.5 hrs. Please bring insurance card to appt Therapist Name of Therapist: P[facility] - [facility] program Therapist's Date of Therapist Appointment: 07/19/24 Time of Therapist Appointment: 11AM Therapy Appointment Comment: First Episode Psychosis Program. [address] [facility] [address], [place] Lumber Cutter Name of Lumber Cutter: None Post Discharge Appointments Primary Care Physician Name Of Family Doctor/PCP: [facility] Contact Information Discharge Discharge Address: [address] [facility] [place] [address]
[2024-07-12] MEDS: clonazePAM 1 MG TAB PO SCH (19:20)
--- NOTE | 2024-07-13 08:54 | Psychiatric Progress Note ---
Date of Service July 13, 2024 Impression / Recommendations Impression LIBBY GAN is a 24-year-old [place] Male, [employer] senior who currently lives alone, has a history of depression, and was admitted on 06/28/24 12:05 on a 302 involuntary commitment for psychosis. Patient presenting paranoia and persecutory delusions regarding fear of of himself and family after being triggered on [employer] online chat June 13. He presents a disorganized thought process, extreme anxiety, insomnia. Poor reality testing. Recently called police for assistance and did not let them inside his apartment due to excess fears. Presented to the hospital and then attempted to elope. Has required agitation and anxiety PRNs for behaviors. Concern for prodromal cognitive difficulties, perceptual changes, decline in academic performance, and social withdrawal seen in Schizophrenia. Possible past hypomanic/marky episodes however unclear. Does not appear to be substance induced. Diagnostically consistent with likely schizophrenia vs bipolar affective disorder mixed episode. A: Sleep improved with returning to higher dose of Klonopin. No evidence for mood symptoms nor psychosis. Future-focused and continues to deny SI. Eager to get back to his apartment and focus on his last semester of classes before returning to [place] in November. He is motivated to engage with outpatient psychiatry, therapy and case management and confirms that his appointments are scheduled. He plans to discuss graduation deadlines with student care and advocacy. No medication side effects. Overall, I spent a total of 28 minutes on this case including meeting with the patient, reviewing the chart, nursing report, multidisciplinary team meeting, orders, and documentation. (1) Unspecified psychosis not due to a substance or known physiological condition: (2) Schizophrenia: (3) Insomnia: (4) Persecutory delusion: (5) Acute paranoia: (6) Anxiety: Plan 07/13/2024: Continue current medications and tx plan. 07/12/2024: -Increase Klonopin to 1mg HS 07/11/2024: -Decrease Klonopin to 0.5mg HS -Start flomax 0.4mg qd 07/10/2024: -Decrease Klonopin to 1mg HS 07/09/2024: -Increase olanzapine to: 5mg qAM and 30mg HS with 2.5mg BID prn for max total da dara dose of 40mg 07/08/2024: Continue with current medications and tx plan. 07/07/2024: Increase olanzapine to 5mg qAM and 25mg HS. EKG ordered for tomorrow to assess QTc. 07/06/2024: Increase Klonopin to 1.5mg HS. 07/05/2024: Continue current medications and tx plan. Olanzapine 2.5mg BID ODT prn for psychosis. 07/04/2024: Discontinue scheduled Cogentin. Start ketoconazole topical prn and triamcinolone acetonide topical prn. 07/03/2024: Continue current medications and tx plan. 07/02/24: D/C Lorazepam. Start Clonazepam 1mg HS. Start Vitamin D 5000u daily. 07/01/24: Continue medications and treatment plan. 06/30/24: D/C Risperidone. Start Olanzapine 5mg QAM, 15mg HS. Benztropine 1mg HS and PRN started. Start Propranolol 10mg TID. Vitals TID. 06/29/24:The patient was admitted to the [facility] ([facility] mental health unit) on q15 min checks (behavioral with suicide precautions) for safety. The patient will participate in group, recreational, and milieu therapies and will be offered additional individual and family sessions as clinically appropriate. -Risperidone 1mg QAM, 2mg HS -Lorazepam 2mg HS -CK, fasting lipid panel, HbA1c, Vitamin D, Vitamin B12 labs Inventory Assets Strengths: independent, family support Needs: improved insight, improved reality testing Suicide Risk Level Suicide Risk Level: Low (q15 min observation checks) (denies SI, positive mood, psychosis has improved, and feels safe in the hospital and feels able to ask for help. 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 Chief Complaint "My sleep did improve last night". Review of Systems Sleep Information Total Hours of Sleep: 5.5 Sleep Comments: awoke early Meal Information Percent Meal Consumed - Breakfast: 100 Percent Meal Consumed - Lunch: 100 Percent Meal Consumed - Dinner: 100 Subjective Subjective Patient was seen & assessed and interval progress reviewed with nursing and social work. Attended groups, showered, rated mood as "peaceful", no evidence for psychosis. Slept more. Today reports stable mood and is looking forward to getting ready for the new semester and adjusting back to his life outside of the hospital. He continues to deny any symptoms of psychosis nor paranoia stating "I feel it's almost gone" and that "I've learned that if that happens it's a warning sign I'm not doing well". He continues to confirm his aftercare appointments and discussed his preference for outpatient pharmacy. He's looking forward to getting back to "normal college experiences". Denies any concerns nor medication side effects. Continues to feel his urination has significantly improved with addition of flomax. Physical Exam Psychiatric Orientation: alert and oriented x 3 Apperance: appropriately dressed and appropriately groomed Eye Contact: good eye contact Motor Behavior: no abnormal motor movements Speech: normal rate/rhythm/volume of speech Affect: + constricted affect (but with some smiles) Mood: no depressed mood and no anxious mood Thought Process: goal directed thought process Thought Content: reality based without delusions Suicidal Thoughts: denies suicidal thoughts Homicidal Thoughts: denies homicidal thoughts Hallucinations: no auditory hallucinations and no visual hallucinations Insight: + fair insight Judgment: + fair judgement Vital Signs (Past 24 Hours) Last Vital Signs Temp 36.5 C 07/13/24 06:32 Pulse 111 H 07/13/24 06:32 Resp 18 07/13/24 06:32 BP 120/77 07/13/24 06:32 Pulse Ox 100 07/11/24 06:00 O2 Del Method Room Air 07/11/24 06:00 Results & Data ([facility]) Current Inpatient Medications Current Inpatient Medications: Current Inpatient Medications Acetaminophen (Acetaminophen 325 Mg Tab) 650 mg PO Q4H PRN PRN Reason: Headache or Minor Fever Stop: 07/28/24 12:04 Al Hydrox/Mg Hydrox/Simethicone (Aluminum/Magnesium Susp 30 Ml Udc) 30 ml PO Q4H PRN PRN Reason: GI Upset Stop: 07/28/24 12:04 Benztropine Mesylate (Benztropine Mesylate 1 Mg Tab) 1 mg PO Q8H PRN PRN Reason: EPS Stop: 07/30/24 11:39 Last Admin: 06/30/24 12:43 Dose: 1 mg Benztropine Mesylate (Benztropine Mesylate 1 Mg/Ml 2 Ml Amp) 1 mg IM Q8H PRN PRN Reason: EPS Stop: 07/30/24 11:39 Bismuth Subsalicylate (Bismuth Subsalicylate 262 Mg Chew) 2 tab PO Q30M PRN PRN Reason: Loose Stool/Diarrhea Stop: 07/28/24 12:04 Clonazepam (Clonazepam 1 Mg Tab) 1 mg PO DAILY@1930 [facility] Stop: 08/11/24 19:29 Last Admin: 07/12/24 19:20 Dose: 1 mg Hydroxyzine HCl (Hydroxyzine Hcl 25 Mg Tab) 50 mg PO HSZ PRN PRN Reason: Insomnia Stop: 07/28/24 12:04 Hydroxyzine HCl (Hydroxyzine Hcl 25 Mg Tab) 25 mg PO Q4H PRN PRN Reason: Anxiety Stop: 07/28/24 12:04 Last Admin: 06/30/24 15:20 Dose: 25 mg Ketoconazole (Ketoconazole 2% Cr 15 Gm Tube) 1 appln EXT DAILY PRN PRN Reason: scalp irritation/flaking Stop: 07/14/24 12:34 Last Admin: 07/06/24 15:37 Dose: 1 appln Lorazepam (Lorazepam 2 Mg/1 Ml Vial) 1 mg IM Q6H PRN PRN Reason: Anxiety Stop: 07/28/24 13:54 Lorazepam (Lorazepam 1 Mg Tab) 1 mg PO Q6H PRN PRN Reason: Anxiety Stop: 07/28/24 14:03 Last Admin: 07/05/24 11:03 Dose: 1 mg Magnesium Hydroxide (Magnesium Hydroxide Susp 30 Ml Udc) 30 ml PO DAILY PRN PRN Reason: Constipation Stop: 07/28/24 12:04 Olanzapine (Olanzapine 5 Mg Tablet) 5 mg PO QAM MARIANA Stop: 07/31/24 08:59 Last Admin: 07/13/24 07:29 Dose: 5 mg Olanzapine (Olanzapine 2.5 Mg Tab) 2.5 mg PO BID PRN PRN Reason: psychosis Stop: 08/04/24 20:59 Last Admin: 07/06/24 11:39 Dose: 2.5 mg Olanzapine (Olanzapine 10 Mg Tab) 30 mg PO HS MARIANA Stop: 08/08/24 21:59 Last Admin: 07/12/24 20:39 Dose: 30 mg Propranolol HCl (Propranolol Hcl 10 Mg Tab) 10 mg PO TID MARIANA Stop: 07/30/24 09:49 Last Admin: 07/13/24 07:31 Dose: 10 mg Sodium Chloride (Sodium Chloride 0.65% Na Soln 45 Ml ([place])) 1 - 2 sprays NA PRN PRN PRN Reason: Nasal Dryness/Congestion Stop: 07/28/24 12:04 Last Admin: 07/04/24 19:12 Dose: 2 sprays Tamsulosin HCl (Tamsulosin Hcl 0.4 Mg Cap) 0.4 mg PO QAM MARIANA Stop: 08/10/24 12:14 Last Admin: 07/13/24 07:30 Dose: 0.4 mg Triamcinolone Acetonide (Triamcinolone Acet 0.1% Cr 80 Gm Tube) 1 appln EXT DAILY PRN PRN Reason: facial redness/itching Stop: 08/03/24 12:34 Last Admin: 07/07/24 19:10 Dose: 1 appln Vitamin D (Cholecalciferol 125 Mcg (5,000 Units) Tab) 125 mcg PO QAM MARIANA Stop: 08/01/24 09:14 Last Admin: 07/13/24 07:29 Dose: 125 mcg Mental Health & Subst Abuse Tx Psychiatrist Name of Psychiatrist: Pacheco Madsen ([address] [facility] [address], [facility]) Psychiatrist's Date Of Appointment With Psychiatric Provider: 07/23/24 Time of Appointment with Psychiatrist: 2:50PM Psychiatric Appointment Comment: Intake appt will take 1.5 hrs. Please bring insurance card to appt [facility] Therapist's Date of Therapist Appointment: 07/20/24 Time of Therapist Appointment: 11AM Therapy Appointment Comment: First Episode Psychosis Program. [address] [facility] [address], [place] Lead Burner Apprentice Name of Lead Burner Apprentice: None Post Discharge Appointments Primary Care Physician Name Of Family Doctor/PCP: [facility] Contact Information Discharge Discharge Address: [facility] [address] [facility] [place] [address]
--- NOTE | 2024-07-14 09:03 | Discharge Summary ---
Date of Service July 14, 2024 History of Present Illness overnight patient presents thought disorganization and thought blocking. This a.m. complained of fear of being killed and requested PRNs. Haldol Ativan given. On interview the patient appeared confused and where to sit in the room. Reports that his "mind is not clear" and then says it is clear. he appears paranoid and reports he is afraid to tell me what brought him to the hospital. "Uncontrolled fears, strong heartbeat, scared, afraid someone is going to kill him". He is worried that if he tells me there is increased fear of danger. Reports not drinking as much water as he usually does. Said that he slept well yesterday but then woke up scared. Reports being on a group chat on discord on June 13. Repeatedly asked for a calendar to better explain the timeline. Says that if he reveals too much then they will harm his family. 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 Has recently been procrastinating and has had poor sleep. Cannot focus on classes and has been feeling nervous. Grades have been poor and he did not complete a final assignment for her class. Reports normally his grades are good. Says he is unsure of family psychiatric history. Reports past depression on Lexapro from April 2019-2023. He stopped it because he felt it was no longer helpful. At this point his thoughts are more disorganized and it is unclear what he is saying. He reports past episode where he was taking condensed coffee and then he was having more extreme mood swings and he was not sleeping for 4 to 5 days and became psychotic. Unable to clarify. Reports in the past has been claustrophobic. Lives by self and studio apartment. Physical Exam Vital Signs (Past 24 Hours) Last Vital Signs Temp 36.6 C 07/14/24 06:00 Pulse 103 H 07/14/24 07:54 Resp 16 07/14/24 06:00 BP 126/93 07/14/24 07:54 Pulse Ox 97 07/14/24 06:00 O2 Del Method Room Air 07/14/24 06:00 Principal Diagnosis Unspecified Psychosis Psychiatric Data See daily stay summary. In short, patient was engaged with the social/therapeutic milieu of the unit, safety was maintained and the patient was cooperative with care. Medication changes included titration of olanzapine to 5mg qAM and 30mg HS for psychosis, propranolol TID for akathisia and off-label for anxiety, Klonopin 1mg HS for insomnia/anxiety, Vit D supplementation and Flomax for urinary hesitancy (not felt to be due to anticholinergic side effects as present prior to initiation of antipsychotic medications, if worsens in the future he was advised to discuss with his PCP/S which he is agreeable to) and they tolerated this well. Baseline labs of fasting glucose, fasting lipid profile, and weight were preformed (see labwork results below). Recommend repeat weight in one month. Recommend repeat fasting glucose, HbA1c and fasting lipid profile every 12 weeks and then annually. If symptoms arise recommend checking BP, EKG, prolactin level as clinically indicated or relevant. A support session was held with his mother via phone call and use of ipad science interpreter and safety plan was completed prior to discharge. They participated in safety planning and in discussions about ways to seek support and recognizing warning signs and utilizing coping skills. Reviewed ways to have their safety plan and contacts easily available should thoughts of SI re-emerge in the future. Reviewed importance of seeking emergency care should SI intensify, worsen or should they feel unsafe in the future which they agree to do. On the day of discharge they stated their mood was "now I feel much much better, I feel like I'm ready to go" and remained future-oriented including relaxing at his apartment, adjusting back into his routine before the start of classes, talking to his senior sustainability advisor and engaging in aftercare appointments for first episode psychosis program with psychiatry, therapy and [employer] student care and advocacy. Day of Discharge Assessment Today the patient voices readiness for discharge. They note improvement in mood and anxiety. They deny thoughts of harm to self or others. Thoughts are organized and they are clinically improved from admission. There is no evidence of psychosis. They improved in the hospital with support and medication adjustments. They agree to take medications as prescribed and keep follow-up appointments. At the time of the discharge they are deemed to be stable and appropriate for outpatient level of care. They are not deemed to be at imminent risk of harm to self or others. They are aware of emergency and crisis services. Knows to call 911 or go to nearest emergency care center if in a crisis which cannot be handled as an outpatient. Suicide risk assessment: Acute risk is low given improvement in mood and denial of SI, lack of access to lethal means, plan to avoid substance use, improvement in sleep, hopefulness and improvement in psychosis. Chronic risk is moderate given some non-modifiable risk factors: psychiatric co-morbid diagnoses, periods of impulsivity, emotional reactivity, prior psychiatric hospitalizations, mood disorder or schizophrenia, but also with protective factors including student, good social support, sense of responsibility to family and social supports, outpatient care in place, positive coping skills, positive problem solving, willingness to engage with treatment and self-observation. Counseled on ways to reduce acute and chronic risk including engaging with outpatient providers, using safety plan if needed, utilizing supports, taking medication, and using coping skills. Modifiable risk factors of SI, depression and psychosis were addressed during hospitalization through development of new coping skills, support meeting, safety planning, and medication adjustments. Discharge physical exam: See admission H&P, MSE per above and day of discharge summary. Overall, I spent a total of 55 minutes on this case including meeting with the patient, reviewing the chart, nursing report, multidisciplinary team meeting, discharge orders, anticipatory planning, safety planning, risk assessment and documentation. Transition of Care Transition Of Care Record: was reviewed with the patient Advance Directives Advance Directives Information Provided: Yes Advance Directives: No Mental Health Advance Directive: No Advance Directives on File: No Living Will: No Power of Manager Domestic: No Advance Directives Reason:: Declines as Mental Health Visit. Suicide Risk Level Suicide Risk Level Comments: Acute risk is low given denial of SI, see further assessment above Risk Factors Assessment Male: Yes : No Do You Have Access To A Gun?: No Health Problems: No Mental Health Diagnoses: Yes Substance Use Disorders: No Previous Attempt: No Family History of Suicide: No Previous Psychiatric Hospitalization: Yes Hopelessness: No Protective Factors Assessment Hinduism Beliefs: Yes : No Responsible for Young Children: No Employed: No (but student) Stable Relationships: Yes Supportive Family: Yes Good Rapport with Provider: Yes Absence of Any Risk Factors Above: No Discharge Data Lab Results 06/28/24 06/28/24 06/30/24 00:17 00:19 07:05 WBC 14.55 H RBC 5.37 Hgb 16.1 Hct 48.1 MCV 89.6 MCH 30.0 MCHC 33.5 RDW Std Deviation 42.4 RDW Coeff of Bridget 13.1 Plt Count 320 MPV 10.5 Immature Gran % (Auto) 0.3 Neut % (Auto) 78.7 Lymph % (Auto) 14.9 [place] % (Auto) 5.6 Eos % (Auto) 0.2 Baso % (Auto) 0.3 Neut # (Auto) 11.44 H Lymph # (Auto) 2.17 [place] # (Auto) 0.82 H Eos # (Auto) 0.03 Baso # (Auto) 0.04 Immature Gran # (Auto) 0.05 Sodium 136 Potassium 3.4 L Chloride 100 Carbon Dioxide 23 Anion Gap 13 H BUN 8 Creatinine 0.98 Est Cr Clr Drug Dosing Not Reportable eGFR 111.12 BUN/Creatinine Ratio 8.2 L Glucose 165 H Estimat Average Glucose 105 Hemoglobin A1c 5.3 Calcium 9.6 Total Bilirubin 1.1 H AST 38 ALT 126 H Alkaline Phosphatase 64 Total Creatine Kinase 123 Total Protein 8.1 Albumin 5.3 H Globulin 2.8 Albumin/Globulin Ratio 1.9 Triglycerides 94 Cholesterol 159 LDL Cholesterol, Calc 98 VLDL Cholesterol, Calc 19 HDL Cholesterol 42 Cholesterol/HDL Ratio 3.8 Vitamin B12 541 25-OH Vitamin D Total 22.8 L TSH 0.727 Urine Color Dark Yellow Urine Appearance Clear Urine pH 6.5 Ur Specific [place] 1.033 H Urine Protein 1+ H Urine Glucose (UA) Negative Urine Ketones 1+ H Urine Blood Negative Urine Nitrite Negative Urine Bilirubin 1+ H Urine Urobilinogen Negative Ur Leukocyte Esterase Trace H Urine WBC (Auto) 0-5 Urine RBC (Auto) 3-5 H U Hyaline Cast (Auto) 0-2 U Epithel Cells (Auto) 0-2 Urine Bacteria (Auto) None Seen Calcium Oxalate Crystal Present A Salicylates < 3.0 L Urine Opiates Screen Neg Ur Methadone, Qual Neg Urine Fentanyl Screen Neg Acetaminophen < 3 L Urine Barbiturates Neg Ur Phencyclidine (PCP) Neg U Amphetamin/Meth Scrn Neg MDMA (Ecstasy) Screen Neg U Benzodiazepines Scrn Neg Ur Cocaine Metabolite Neg U Marijuana (THC) Screen Neg Ethyl Alcohol mg/dL < 10.0 SARS-CoV-2, RNA, NAAT NEGATIVE Hospital Course (1) Unspecified psychosis not due to a substance or known physiological condition: (2) Schizophrenia: (3) Insomnia: (4) Persecutory delusion: (5) Acute paranoia: (6) Anxiety: Plan 07/13/2024: Continue current medications and tx plan. 07/12/2024: -Increase Klonopin to 1mg HS 07/11/2024: -Decrease Klonopin to 0.5mg HS -Start flomax 0.4mg qd 07/10/2024: -Decrease Klonopin to 1mg HS 07/09/2024: -Increase olanzapine to: 5mg qAM and 30mg HS with 2.5mg BID prn for max total daily dose of 40mg 07/08/2024: Continue with current medications and tx plan. 07/07/2024: Increase olanzapine to 5mg qAM and 25mg HS. EKG ordered for tomorrow to assess QTc. 07/06/2024: Increase Klonopin to 1.5mg HS. 07/05/2024: Continue current medications and tx plan. Olanzapine 2.5mg BID ODT prn for psychosis. 07/04/2024: Discontinue scheduled Cogentin. Start ketoconazole topical prn and triamcinolone acetonide topical prn. 07/03/2024: Continue current medications and tx plan. 07/02/24: D/C Lorazepam. Start Clonazepam 1mg HS. Start Vitamin D 5000u daily. 07/01/24: Continue medications and treatment plan. 06/30/24: D/C Risperidone. Start Olanzapine 5mg QAM, 15mg HS. Benztropine 1mg HS and PRN started. Start Propranolol 10mg TID. Vitals TID. 06/29/24:The patient was admitted to the [facility] ([facility] mental [facility] unit) on q15 min checks (behavioral with suicide precautions) for safety. The patient will participate in group, recreational, and milieu therapies and will be offered additional individual and family sessions as clinically appropriate. -Risperidone 1mg QAM, 2mg HS -Lorazepam 2mg HS -CK, fasting lipid panel, HbA1c, Vitamin D, Vitamin B12 labs Mental Health & Subst Abuse Tx Psychiatrist Name of Psychiatrist: Pacheco Madsen ([address], [facility]) Psychiatrist's Date Of Appointment With Psychiatric Provider: 07/23/24 Time of Appointment with Psychiatrist: 2:50PM Psychiatric Appointment Comment: Intake appt will take 1.5 hrs. Please bring insurance card to appt Therapist Name of Therapist: [facility] - [facility]EP program Therapist's Date of Therapist Appointment: 07/20/24 Time of Therapist Appointment: 11AM Therapy Appointment Comment: First Episode Psychosis Program. [address], [place] Manager Mission Name of Manager Mission: None Post Discharge Appointments Primary Care Physician Name Of Family Doctor/PCP: FEROZ Other #1: Name of Aftercare Appointment: Student care and advocacy post hospitalization meeting Phone Number of Aftercare Appointment: [phone] Date of Aftercare Appointment: 07/15/24 Time of Aftercare Appointment: 10am Aftercare Appointment Comment: Zoom link will be sent to your [facility] e mail Contact Information Discharge Discharge Address: [address] [place] [id number] Discharge Plan Discharge Items Patient Disposition: Home - Self-Care Reason For Visit: MHE Discharge Diagnosis: Unspecified Psychosis Condition on Discharge: Good Activity: Resume your previous activity Non-emergency contact: Primary Care Provider, Psychiatrist, Therapist and Sawmill Worker Call non-emergency contact if: you have any medication questions and your symptoms worsen Follow-up/Referrals: [facility] [Primary Care Provider] - Diet: Regular Addtl Attending Provider Instructions: SPECIAL CARE INSTRUCTIONS: 1. Follow through with your scheduled aftercare appointments. If unable to keep an appointment, please call to reschedule. 2. Take your medication only as prescribed. Medication should not be changed or stopped without the approval of your doctor. In the event of worsening symptoms or concerns about side effects, contact your doctor immediately. 3. Utilize new healthy coping skills, anger management skills, and stress management skills learned during your hospitalization. Journal feelings and process them with a support person. Identify stressors or situations that may result in relapse, deterioration or inappropriate behaviors and develop a plan to deal with those issues. 4. If your coping skills are ineffective and you are in crisis, contact your outpatient providers for direction. If unable to reach your providers, please call the [facility] CRISIS LINE AT , go to the [facility] walk-in center at [address], [address], [place], or go to the closest Emergency Room. OR * Call the 27/01 [facility] Crisis Line at 5. Avoid alcohol and un-prescribed drugs. 6. You have been provided with the Mental Health Advance Directives Pamphlet for your review. 7. Your condition is stable for discharge to outpatient level of care, but recovery is an ongoing process. Ifthoughts to harm yourself or others return, follow the safety plan developed during your stay. Planning for a safe return home includes securing weapons. Our treatment team recommends weaponsbe removed from the home until your outpatient provider reassesses your progress. In rare cases where the items themselvescannot be removed, guns and ammunitionshould be secured separatelyand keys stored by a reliable personoutside of the home. If you were admitted on an involuntary commitment, the police or other legal authorities may be involved in this process. AFTERCARE APPOINTMENTS: * Please call your insurance company prior to your scheduled appointment to confirm your aftercare providers are covered. Take your insurance information to your appointments. WHO TO CALL AND WHEN: Medical Emergencies: For questions or emergencies related to your hospital stay, please contact the Inpatient Behavioral Health Unit at [phone]. A psychiatric mental health nurse is on-call 27/01 for the Behavioral Health Unit for emergencies At any time you feel your situation is an emergency, you may also call 911 immediately. National Crisis Hotline: 988 Pending Studies at Discharge: No Stand-Alone Forms: My [facility] Medications and DC Order Prescriptions: New tamsulosin 0.4 mg Capsule 0.4 mg PO QAM 30 Days Qty: 30 0RF propranolol 10 mg Tablet 10 mg PO TID 30 Days Qty: 90 0RF clonazepam 1 mg Tablet 1 mg PO DAILY@1930 30 Days Qty: 30 0RF olanzapine 10 mg Tablet 30 mg PO HS 30 Days Qty: 90 0RF olanzapine 5 mg Tablet 5 mg PO QAM 30 Days Qty: 30 0RF cholecalciferol (vitamin D3) 125 mcg (5,000 unit) Tablet 125 mcg PO QAM 30 Days Qty: 30 0RF Discharge Orders: Discharge Order (Routine); Ordered 07/14/24 Ordered By: Denae Ivy Admission Data Admit Date/Time: 06/28/24 12:05 Attending Provider: Denae Ivy Admit Provider: Mj Navarro [facility] Other Interventions: Discharge Summary Assessment (RN) Last Done: 07/14/24 10:27 Coding Level of Care Code 22848 D/C day mgmt > 30 min Diagnoses Unspecified psychosis not due to a substance or known physiological condition F29 Schizophrenia F20.9 Insomnia G47.00 Persecutory delusion F22 Acute paranoia F22 Anxiety F41.9
== END 2024-07-14 11:00 | disposition home or self-care (01) | DRG 885 ==
LOC: ED 23:55 → 3S 06-28 12:05 → SUATTDRO 06-28 12:05 → 3S 06-28 13:09